=== PATIENT | female | born 1970 | race Caucasian/White ===

== ENCOUNTER 2016-11-12 18:29 | Inpatient (IN) | payer MEDICAID, OTHER ==
[2016-11-12 19:32] LABS: Hematocrit 35 % (35-47); Hemoglobin 11.3 g/dl (12.0-16.0); Mean Corpuscular HGB Conc 32 g/dl (31-36); Mean Corpuscular Hemoglobin 27 pg (27-31); Mean Corpuscular Volume 82 fL (80-97); Mean Platelet Volume 8 um3 (7.4-10.4); Red Blood Count 4.26 10^6/ul (4.0-5.4); Red Cell Distribution Width 16 % (10.5-15); White Blood Count 5.9 10^3/ul (3.5-10.8)
[2016-11-12 19:36] LABS: Urine Bilirubin Negative (Negative); Urine Glucose Negative (Negative); Urine Nitrite Negative (Negative)
[2016-11-12 19:48] LABS: ALT 36 U/L (7-52); AST 31 U/L (13-39); Albumin 3.7 g/dL (3.2-5.2); Alkaline Phosphatase 101 U/L (34-104); Anion Gap 4 mmol/L (2-11); BUN/Creatinine Ratio 15.8 (8-20); Blood Urea Nitrogen 16 mg/dL (6-24); CO2 Carbon Dioxide 31 mmol/L (22-32); Calcium 9.7 mg/dL (8.6-10.3); Chloride 103 mmol/L (101-111); EGFR African American 76.6 (>60); EGFR Non-African American 59.5 (>60); Globulin 3.3 g/dL (2-4); Glucose 84 mg/dL (70-100); Sodium 138 mmol/L (133-145)
[2016-11-12 19:56] LABS: Benzodiazepine Urine Screen None Detected (None Detect)
[2016-11-12 20:02] LABS: Acetaminophen < 15 mcg/mL; Alcohol < 10 mg/dL (<10); Salicylate < 2.50 mg/dL (<30)
[2016-11-12 20:11] LABS: TSH (Thyroid Stimulating Horm) 1.91 mcIU/mL (0.34-5.60)
--- NOTE | 2016-11-12 22:51 | ED ---
Soumya Rodriguez SooYoung, scribed for Tito Goode MD on 11/12/16 at 1912 . Psychiatric Complaint - HPI Summary HPI Summary: A 46 y/o F presents to ED with recent auditory and visual hallucinations. Pt states hearing a little girl crying, as well as a man screaming and hollering. She states being functional, paying bills, acting as caregiver for her step- mom. She notes her father in 04/2016. She was admitted to a psych [facility] for a month when her mother 7 years ago. Pert PMHx: phobia of number, OCD, BPD, schiz. Pt is medication non-compliant. - History Of Current Complaint Chief Complaint: EDMentalHealth Time Seen by Provider: 11/12/16 18:59 Hx Obtained From: Patient Hx Last Menstrual Period: 6 yrs Onset/Duration: Still Present Timing: Constant Associated Signs And Symptoms: Positive: Hallucinating - Allergies/Home Medications Allergies/Adverse Reactions: Allergies Allergy/AdvReac Type Severity Reaction Status Date / Time Morphine Allergy Severe Difficulty Verified 12/15/15 14:48 Breathing Sulfa Antibiotics Allergy Severe diffiuclty Verified 12/15/15 14:48 breathing Bee Venom Allergy Anaphylatic Verified 12/15/15 14:48 Shock Latex Allergy Swelling Verified 12/15/15 14:48 Of Face,Lips,& Throat PMH/Surg Hx/FS Hx/Imm Hx Previously Healthy: No Endocrine/Hematology History: Reports: Hx Thyroid Disease - ON DAILY MEDS Denies: Hx Anticoagulant Therapy, Hx Diabetes - boarderline hx Cardiovascular History: Reports: Hx Hypertension - TREATED Denies: Hx Pacemaker/ICD Respiratory History: Reports: Hx Asthma - ON DAILY MEDS, NOT NEED ED INHALER IN MONTHS, Hx Sleep Apnea - NO CPAP ( STATES DIDN'T USE, GAVE IT BACK) Denies: Hx Lung Cancer GI History: Denies: Hx Gall Bladder Disease, Hx Gastrointestinal Bleed, Hx Ulcer, Hx Urosepsis History: Denies: Hx Kidney Stones, Hx Renal Disease Musculoskeletal History: Reports: Hx Arthritis - OSTEOARTHRITIS, Other Musculoskeletal History - FIBROMYALGIA, DJD Denies: Hx Rheumatoid Arthritis, Hx Osteoporosis Sensory History: Reports: Hx Contacts or Glasses - CONTACTS, WILL WEAR GLASSES DAY OF SURGERY Denies: Hx Hearing Aid Opthamlomology History: Reports: Hx Contacts or Glasses - CONTACTS, WILL WEAR GLASSES DAY OF SURGERY Neurological History: Reports: Hx Seizures - Hx OF EPILEPSY, NO SEIZURES SINCE 2010 Denies: Hx Dementia, Hx Migraine, Hx Transient Ischemic Attacks (TIA) Psychiatric History: Reports: Hx Anxiety - ON MEDS DAILY, Hx Depression, Hx Schizophrenia, Other Psychiatric Issues/Disorders - borderline personality disorder; OCD Denies: Hx Panic Disorder, Hx Bipolar Disorder - Cancer History Cancer Type, Location and Year: OVARIAN/UTERINE Hx Chemotherapy: No Hx Radiation Therapy: No - Surgical History Surgery Procedure, Year, and Place: 1990 & [place] [place]. 2000 hysterectomy [facility]. 2010 MENISCUS REPAIRED AND ARTHRITIS REMOVED FROM LT K[facility] [place]. july 2015. 2011 GALL BLADDER REMOVED [facility]. KNEE SURGERY-LEFT 07/16/15 Hx Anesthesia Reactions: No Infectious Disease History: No Infectious Disease History: Denies: Traveled Outside the [place] in Last 30 Days - Family History Known Family History: Positive: Cardiac Disease, Hypertension, Diabetes - Social History Occupation: Disabled Lives: Alone Alcohol Use: None Hx Substance Use: No Substance Use Type: Reports: None Hx Tobacco Use: No Smoking Status (MU): Never Smoked Tobacco Have You Smoked in the Last Year: No Review of Systems Negative: Fever Negative: Cough Psychological: Other - pos: auditory and visual hallucinations All Other Systems Reviewed And Are Negative: Yes Physical Exam Triage Information Reviewed: Yes Vital Signs On Initial Exam: Initial Vitals Temp Pulse Resp BP Pulse Ox 97.2 F 79 18 143/65 100 11/12/16 18:41 11/12/16 18:41 11/12/16 18:41 11/12/16 18:41 11/12/16 18:41 Vital Signs Reviewed: Yes Appearance: Positive: Well-Appearing, No Pain Distress, Obese Skin: Positive: Warm, Skin Color Reflects Adequate Perfusion, Dry Head/Face: Positive: Normal Head/Face Inspection Eyes: Positive: Normal ENT: Positive: Normal ENT inspection Neck: Positive: Supple, Nontender Respiratory/Lung Sounds: Positive: Clear to Auscultation, Breath Sounds Present Cardiovascular: Positive: RRR Abdomen Description: Positive: Nontender, Soft Bowel Sounds: Positive: Present Musculoskeletal: Positive: Normal Neurological: Positive: Normal Psychiatric: Positive: Normal, Affect/Mood Appropriate Diagnostics - Vital Signs Vital Signs Temp Pulse Resp BP Pulse Ox 11/12/16 18:41 97.2 F 79 18 143/65 100 - Laboratory Lab Results: Lab Results 11/12/16 11/12/16 11/12/16 Range/Units 19:19 19:19 19:19 WBC 5.9 (3.5-10.8) 10^3/ul RBC 4.26 (4.0-5.4) 10^6/ul Hgb 11.3 L (12.0-16.0) g/dl Hct 35 (35-47) % MCV 82 (80-97) fL MCH 27 (27-31) pg MCHC 32 (31-36) g/dl RDW 16 H (10.5-15) % Plt Count 258 (150-450) 10^3/ul MPV 8 (7.4-10.4) um3 Neut % (Auto) 47.1 (38-83) % Lymph % (Auto) 42.6 (25-47) % [place] % (Auto) 8.3 (1-9) % Eos % (Auto) 1.2 (0-6) % Baso % (Auto) 0.8 (0-2) % Absolute Neuts (auto) 2.8 (1.5-7.7) 10^3/ul Absolute Lymphs (auto) 2.5 (1.0-4.8) 10^3/ul Absolute Monos (auto) 0.5 (0-0.8) 10^3/ul Absolute Eos (auto) 0.1 (0-0.6) 10^3/ul Absolute Basos (auto) 0 (0-0.2) 10^3/ul Absolute Nucleated RBC 0.01 10^3/ul Nucleated RBC % 0.1 Sodium 138 (133-145) mmol/L Potassium 4.0 (3.5-5.0) mmol/L Chloride 103 (101-111) mmol/L Carbon Dioxide 31 (22-32) mmol/L Anion Gap 4 (2-11) mmol/L BUN 16 (6-24) mg/dL Creatinine 1.01 H (0.51-0.95) mg/dL Est GFR ( Amer) 76.6 (>60) Est GFR (Non-Af Amer) 59.5 (>60) BUN/Creatinine Ratio 15.8 (8-20) Glucose 84 (70-100) mg/dL Calcium 9.7 (8.6-10.3) mg/dL Total Bilirubin 0.30 (0.2-1.0) mg/dL AST 31 (13-39) U/L ALT 36 (7-52) U/L Alkaline Phosphatase 101 (34-104) U/L Total Protein 7.0 (6.4-8.9) g/dL Albumin 3.7 (3.2-5.2) g/dL Globulin 3.3 (2-4) g/dL Albumin/Globulin Ratio 1.1 (1-3) TSH 1.91 (0.34-5.60) mcIU/mL Urine Color Yellow Urine Appearance Clear Urine pH 5.0 (5-9) Ur Specific [place] 1.020 (1.010-1.030) Urine Protein Negative (Negative) Urine Ketones Negative (Negative) Urine Blood Negative (Negative) Urine Nitrate Negative (Negative) Urine Bilirubin Negative (Negative) Urine Urobilinogen Negative (Negative) Ur Leukocyte Esterase Negative (Negative) Urine Glucose Negative (Negative) Urine Ascorbic Acid * H (Negative) Salicylates < 2.50 (<30) mg/dL Urine Opiates Screen (None Detect) Acetaminophen < 15 mcg/mL Ur Barbiturates Screen (None Detect) Ur Phencyclidine Scrn (None Detect) Ur Amphetamines Screen (None Detect) U Benzodiazepines Scrn (None Detect) Urine Cocaine Screen (None Detect) U Cannabinoids Screen (None Detect) Serum Alcohol < 10 (<10) mg/dL 11/12/16 Range/Units 19:19 WBC (3.5-10.8) 10^3/ul RBC (4.0-5.4) 10^6/ul Hgb (12.0-16.0) g/dl Hct (35-47) % MCV (80-97) fL MCH (27-31) pg MCHC (31-36) g/dl RDW (10.5-15) % Plt Count (150-450) 10^3/ul MPV (7.4-10.4) um3 Neut % (Auto) (38-83) % Lymph % (Auto) (25-47) % [place] % (Auto) (1-9) % Eos % (Auto) (0-6) % Baso % (Auto) (0-2) % Absolute Neuts (auto) (1.5-7.7) 10^3/ul Absolute Lymphs (auto) (1.0-4.8) 10^3/ul Absolute Monos (auto) (0-0.8) 10^3/ul Absolute Eos (auto) (0-0.6) 10^3/ul Absolute Basos (auto) (0-0.2) 10^3/ul Absolute Nucleated RBC 10^3/ul Nucleated RBC % Sodium (133-145) mmol/L Potassium (3.5-5.0) mmol/L Chloride (101-111) mmol/L Carbon Dioxide (22-32) mmol/L Anion Gap (2-11) mmol/L BUN (6-24) mg/dL Creatinine (0.51-0.95) mg/dL Est GFR ( Amer) (>60) Est GFR (Non-Af Amer) (>60) BUN/Creatinine Ratio (8-20) Glucose (70-100) mg/dL Calcium (8.6-10.3) mg/dL Total Bilirubin (0.2-1.0) mg/dL AST (13-39) U/L ALT (7-52) U/L Alkaline Phosphatase (34-104) U/L Total Protein (6.4-8.9) g/dL Albumin (3.2-5.2) g/dL Globulin (2-4) g/dL Albumin/Globulin Ratio (1-3) TSH (0.34-5.60) mcIU/mL Urine Color Urine Appearance Urine pH (5-9) Ur Specific [place] (1.010-1.030) Urine Protein (Negative) Urine Ketones (Negative) Urine Blood (Negative) Urine Nitrate (Negative) Urine Bilirubin (Negative) Urine Urobilinogen (Negative) Ur Leukocyte Esterase (Negative) Urine Glucose (Negative) Urine Ascorbic Acid (Negative) Salicylates (<30) mg/dL Urine Opiates Screen None detected (None Detect) Acetaminophen mcg/mL Ur Barbiturates Screen None detected (None Detect) Ur Phencyclidine Scrn None detected (None Detect) Ur Amphetamines Screen None detected (None Detect) U Benzodiazepines Scrn None detected (None Detect) Urine Cocaine Screen None detected (None Detect) U Cannabinoids Screen None detected (None Detect) Serum Alcohol (<10) mg/dL Result Diagrams: 11/12/16 19:19 11/12/16 19:19 Lab Statement: Any lab studies that have been ordered have been reviewed, and results considered in the medical decision making process. Course/Dx - Course Course Of Treatment: Pt is medically clear for MHE at 2014. - Differential Dx/Clinical Impression Provider Diagnosis: Psychosis Discharge - Discharge Plan Condition: Stable Disposition: OTHER Discharge Disposition Comment: Change of Shift The documentation as recorded by the Soumya mckinney SooYoung accurately reflects the service I personally performed and the decisions made by me, Tito Goode MD.
[2016-11-13] MEDS ORDERED: Docusate CAP* 100 MG ONE (00:53)
[2016-11-13] MEDS ORDERED: Cholecalciferol TAB* 1000 UNITS ONE (00:53)
[2016-11-13] MEDS ORDERED: traZODone TAB* 100 MG ONE (00:53)
[2016-11-13] MEDS ORDERED: Magnesium Oxide TAB* 400 MG ONE (00:54)
[2016-11-13] MEDS ORDERED: Metoprolol Tartrate TAB* 50 mg ONE (00:54)
[2016-11-13] MEDS ORDERED: Pregabalin CAP(*) 100 MG ONE (00:55)
[2016-11-13] MEDS ORDERED: hydrOXYzine HCL TAB* 50 MG ONE (00:55)
[2016-11-13] MEDS: hydrOXYzine HCL TAB* 50 MG PO SCH ×3 (01:06→21:54)
[2016-11-13] MEDS: Cholecalciferol TAB* 1000 UNITS PO SCH ×3 (01:06→21:53)
[2016-11-13] MEDS: Metoprolol Tartrate TAB* 50 mg PO SCH ×3 (01:06→21:54)
[2016-11-13] MEDS: Magnesium Oxide TAB* 400 MG PO SCH ×3 (01:06→21:54)
[2016-11-13] MEDS: Pregabalin CAP(*) 100 MG PO SCH ×3 (01:07→21:59)
[2016-11-13] MEDS: Nabumetone TAB* 500 MG PO SCH ×3 (01:07→21:54)
[2016-11-13] MEDS: tiZANidine TAB* 2 MG PO SCH ×2 (01:08→21:56)
[2016-11-13] MEDS: traZODone TAB* 100 MG PO SCH ×2 (01:08→21:57)
[2016-11-13] MEDS ORDERED: Al Hydrox/Mg Hydrox/Simet LIQ* 30 ML UDC PO PRN (06:07)
[2016-11-13] MEDS ORDERED: Acetaminophen TAB* 325 MG PO PRN (06:07)
[2016-11-13] MEDS ORDERED: Levothyroxine TAB* 25 MCG TAB ONE (06:30)
[2016-11-13] MEDS: Levothyroxine TAB* 50 MCG TAB PO SCH (06:34)
[2016-11-13] MEDS: Omeprazole CAP* 20 MG PO SCH (09:16)
[2016-11-13] MEDS: Cetirizine* 10 MG TAB PO SCH (09:16)
[2016-11-13] MEDS: Docusate CAP* 100 MG PO SCH ×2 (09:17→21:53)
[2016-11-13] MEDS: Calcium/Vitamin D TAB 250/125* TAB PO SCH (09:19)
[2016-11-13] MEDS: Atorvastatin* 40 MG TAB PO SCH (09:19)
[2016-11-13] MEDS: Fluticasone NASAL SPRAY 50MCG* 16 gm SPRAY BTL BOTH NARES SCH ×2 (09:21→21:53)
[2016-11-13] MEDS: Vitamin THERAPEUTIC TAB PO SCH (09:40)
--- NOTE | 2016-11-13 11:04 | PN ---
MHU: Group Therapy Note - Service Type Service Type: [id number] Group Psychotherapy - cognitive behavioral psychotherapy note: Patient was disrespectful to staff and disrupted group while exiting early.
[2016-11-13] MEDS: Paliperidone TAB* 6 MG PO SCH (15:31)
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
[2016-11-14] MEDS: Levothyroxine TAB* 50 MCG TAB PO SCH (06:18)
[2016-11-14 08:59] LABS: HDL Cholesterol 48.7 mg/dL; Magnesium 2.2 mg/dL (1.9-2.7)
[2016-11-14] MEDS: Paliperidone TAB* 6 MG PO SCH (09:00)
[2016-11-14] MEDS: Fluticasone NASAL SPRAY 50MCG* 16 gm SPRAY BTL BOTH NARES SCH ×2 (09:00→21:40)
[2016-11-14] MEDS: Pregabalin CAP(*) 100 MG PO SCH ×2 (09:02→21:42)
[2016-11-14] MEDS: Docusate CAP* 100 MG PO SCH ×2 (09:02→21:48)
[2016-11-14] MEDS: Cetirizine* 10 MG TAB PO SCH (09:03)
[2016-11-14] MEDS: Atorvastatin* 40 MG TAB PO SCH (09:03)
[2016-11-14] MEDS: Cholecalciferol TAB* 1000 UNITS PO SCH ×2 (09:03→21:41)
[2016-11-14] MEDS: Calcium/Vitamin D TAB 250/125* TAB PO SCH (09:04)
[2016-11-14] MEDS: Magnesium Oxide TAB* 400 MG PO SCH ×2 (09:05→21:41)
[2016-11-14] MEDS: hydrOXYzine HCL TAB* 50 MG PO SCH ×2 (09:05→21:41)
[2016-11-14] MEDS: Metoprolol Tartrate TAB* 50 mg PO SCH ×2 (09:06→21:43)
[2016-11-14] MEDS: Nabumetone TAB* 500 MG PO SCH ×2 (09:06→21:43)
[2016-11-14] MEDS: Vitamin THERAPEUTIC TAB PO SCH (09:07)
[2016-11-14] MEDS: Omeprazole CAP* 20 MG PO SCH (09:08)
--- NOTE | 2016-11-14 11:35 | PN ---
MHU: Group Therapy Note - Service Type Service Type: [id number] Group Psychotherapy - Cognitive Behavioral Group Therapy ( CBT):Patient was attentive and participatory in CBT programming this morning, and remained in good behavioral control. Patient expressed positive insights regarding relevant treatment interventions and goals.
[2016-11-14] MEDS ORDERED: LORazepam TAB(*) 1 MG PO PRN (13:15)
--- NOTE | 2016-11-14 14:24 | PN ---
Subjective - Subjective Service Type: [id number] Hosp care 15 min low complexity Subjective: Yasmin continues to complain of anxiety, AH and VH. She reports that last night she wrote racist comments in her journal, something she sees as anathematic to her values. "That's not me at all, but that's how crazy I've become." She continues to endorse SI related to command AH. She is tolerating the paliperidone well so far and requests a higher dose. She is upset that she cannot have a close friend visit her on the unit due to the departmental policy that recently admitted patients, such as her friend, may not be visitors until 6 months after their own discharge. She c/o new onset abdominal pain with no nausea, bloody stools or emesis. Objective - Appearance Appearance: Obese Dysmorphic Features: No Hygiene: Normal Grooming: Well Kept - Behavior Psychomotor Activities: Normal Exhibits Abnormal Movement: No - Attitude and Relatedness Attitude and Relatedness: Needy Eye Contact: Good - Speech Quality: Pressured Latencies: Short Quantity: Copious - Mood Patient's Decription of Mood: "Terrible" - Affect Observed Affect: Labile Affect Consistent with: Dysphoria - Thought Process Patient's Thought Process: Tangential Thought Content: Yes Passive Wish, No Suicidal Planning, No Homicidal Ideation, No Paranoid Ideation - Sensorium Experiencing Hallucinations: Yes Type of Hallucinations: Visual: Yes, Auditory: Yes, Command: Yes - Level of Consciousness Level of Consciousness: Alert Orientation: Yes Intact, Yes Orientated to Time, Yes Orientated to Place, Yes Orientated to Person - Impulse Control Impulse Control: Tenuous - Insight and Judgement Insight and Judgement: Fair - Group Participation Particating in Group Activities: Yes - Medication Management Medication Management Adherence: Yes Assessment - Assessment Merits Inpatient Hospitalization: For Immediate Safety, For Stabilization Inpatient DSM-IV Dx: Unspecified Psychotic DO Clinical Impression: 46 y.o. white female with a history of schizophrenia, PTSD, OCD and borderline PD arrives voluntarily seeking admission secondary to several days of severe AH commanding her to harm herself via OD, jumping off a bridge or running her car off the road. Plan - Plan Treatment Plan: Name: YASMIN HALL Birthdate: 1970 [id number] We have started a trial of paliperidone at 6mg PO qday and will increase this to 9mg PO qday. Will utilize prn lorazepam 1mg for anxiety. Mylanta 15cc PO q6h prn for indigestion/abdominal pain. Will consider Invega Sustenna long acting injectable formulation if patient can follow up with an outpatient provider that accommodates this option. Continued Medication Management: Start Medication Medications: Current Medications Acetaminophen (Tylenol Tab*) 650 mg PO Q4H PRN PRN Reason: PAIN or TEMP > 101 F Last Admin: 11/13/16 20:24 Dose: 650 mg Al Hydrox/Mg Hydrox/Simethicone (Maalox Plus*) 30 ml PO Q4H PRN PRN Reason: INDIGESTION Atorvastatin Calcium (Lipitor*) 40 mg PO DAILY [facility] Last Admin: 11/14/16 09:03 Dose: 40 mg Calcium/Vitamin D (Oscal D Tab 250/125*) 1 tab PO DAILY [facility] Last Admin: 11/14/16 09:04 Dose: 1 tab Cetirizine HCl (Zyrtec*) 10 mg PO DAILY [facility] Last Admin: 11/14/16 09:03 Dose: 10 mg Cholecalciferol (Vitamin D Tab*) 2,000 units PO BID [facility] Docusate Sodium (Colace Cap*) 100 mg PO BID [facility] Last Admin: 11/14/16 09:02 Dose: 100 mg Fluticasone Propionate (Flonase Nasal [place] 50mcg*) 1 spray BOTH NARES BID [facility] Last Admin: 11/14/16 09:00 Dose: 1 spray Hydroxyzine HCl (Atarax Tab*) 50 mg PO DAILY [facility] Last Admin: 11/14/16 09:05 Dose: 50 mg Hydroxyzine HCl (Atarax Tab*) 100 mg PO BEDTIME [facility] Last Admin: 11/13/16 21:54 Dose: 100 mg Levothyroxine Sodium (Synthroid Tab*) 50 mcg PO DAILY@0600 [facility] Last Admin: 11/14/16 06:18 Dose: 50 mcg Lorazepam (Ativan Tab(*)) 1 mg PO Q6H PRN PRN Reason: ANXIETY Magnesium Oxide (Magox 400 Tab*) 400 mg PO DAILY [facility] Last Admin: 11/14/16 09:05 Dose: 400 mg Magnesium Oxide (Magox 400 Tab*) 800 mg PO BEDTIME [facility] Last Admin: 11/13/16 21:54 Dose: 800 mg Metoprolol Tartrate (Lopressor Tab*) 50 mg PO BID [facility] Last Admin: 11/14/16 09:06 Dose: 50 mg Multivitamins (Theragran Tab*) 1 tab PO DAILY [facility] Last Admin: 11/14/16 09:07 Dose: 1 tab Nabumetone (Relafen Tab*) 750 mg PO BID [facility] Last Admin: 11/14/16 09:06 Dose: 750 mg Omeprazole (Prilosec Cap*) 20 mg PO DAILY@0730 [facility] Last Admin: 11/14/16 09:08 Dose: 20 mg Paliperidone (Invega Tab*) 9 mg PO DAILY [facility] Pregabalin (Lyrica Cap(*)) 200 mg PO BID [facility] Last Admin: 11/14/16 09:02 Dose: 200 mg Tizanidine HCl (Zanaflex Tab*) 12 mg PO BEDTIME [facility] Last Admin: 11/13/16 21:56 Dose: 12 mg Trazodone HCl (Desyrel Tab*) 100 mg PO BEDTIME [facility] Last Admin: 11/13/16 21:57 Dose: 100 mg - Discharge Plan Discharge Plan: Inpatient Hospitalization
[2016-11-14] MEDS: traZODone TAB* 100 MG PO SCH (21:43)
[2016-11-14] MEDS: tiZANidine TAB* 2 MG PO SCH (21:44)
[2016-11-15] MEDS: Levothyroxine TAB* 50 MCG TAB PO SCH (06:05)
[2016-11-15] MEDS: Fluticasone NASAL SPRAY 50MCG* 16 gm SPRAY BTL BOTH NARES SCH ×2 (09:19→21:33)
[2016-11-15] MEDS: Nabumetone TAB* 500 MG PO SCH ×2 (09:20→21:33)
[2016-11-15] MEDS: Vitamin THERAPEUTIC TAB PO SCH (09:20)
[2016-11-15] MEDS: Pregabalin CAP(*) 100 MG PO SCH ×2 (09:21→21:34)
[2016-11-15] MEDS: Paliperidone TAB* 9 MG PO SCH (09:22)
[2016-11-15] MEDS: Metoprolol Tartrate TAB* 50 mg PO SCH ×2 (09:22→21:35)
[2016-11-15] MEDS: Docusate CAP* 100 MG PO SCH ×2 (09:22→21:34)
[2016-11-15] MEDS: hydrOXYzine HCL TAB* 50 MG PO SCH ×2 (09:22→21:35)
[2016-11-15] MEDS: Magnesium Oxide TAB* 400 MG PO SCH ×2 (09:22→21:35)
[2016-11-15] MEDS: Omeprazole CAP* 20 MG PO SCH (09:23)
[2016-11-15] MEDS: Atorvastatin* 40 MG TAB PO SCH (09:23)
[2016-11-15] MEDS: Cholecalciferol TAB* 1000 UNITS PO SCH ×2 (09:23→21:32)
[2016-11-15] MEDS: Calcium/Vitamin D TAB 250/125* TAB PO SCH (09:23)
[2016-11-15] MEDS: Cetirizine* 10 MG TAB PO SCH (09:24)
[2016-11-15] MEDS: tiZANidine TAB* 2 MG PO SCH (21:31)
[2016-11-15] MEDS: traZODone TAB* 100 MG PO SCH (21:35)
[2016-11-16] MEDS: Levothyroxine TAB* 50 MCG TAB PO SCH (06:00)
[2016-11-16] MEDS: Fluticasone NASAL SPRAY 50MCG* 16 gm SPRAY BTL BOTH NARES SCH ×2 (09:36→21:01)
[2016-11-16] MEDS: Nabumetone TAB* 500 MG PO SCH ×2 (09:37→21:02)
[2016-11-16] MEDS: Magnesium Oxide TAB* 400 MG PO SCH ×2 (09:40→21:02)
[2016-11-16] MEDS: Omeprazole CAP* 20 MG PO SCH (09:41)
[2016-11-16] MEDS: Paliperidone TAB* 9 MG PO SCH (09:41)
[2016-11-16] MEDS: Metoprolol Tartrate TAB* 50 mg PO SCH ×2 (09:41→21:02)
[2016-11-16] MEDS: Atorvastatin* 40 MG TAB PO SCH (09:42)
[2016-11-16] MEDS: Cholecalciferol TAB* 1000 UNITS PO SCH ×2 (09:43→21:01)
[2016-11-16] MEDS: Calcium/Vitamin D TAB 250/125* TAB PO SCH (09:45)
[2016-11-16] MEDS: Docusate CAP* 100 MG PO SCH ×2 (09:46→21:01)
[2016-11-16] MEDS: hydrOXYzine HCL TAB* 50 MG PO SCH ×2 (09:47→21:02)
[2016-11-16] MEDS: Cetirizine* 10 MG TAB PO SCH (09:47)
[2016-11-16] MEDS: Vitamin THERAPEUTIC TAB PO SCH (09:48)
[2016-11-16] MEDS: Pregabalin CAP(*) 100 MG PO SCH ×2 (09:50→21:03)
--- NOTE | 2016-11-16 16:53 | PN ---
Subjective - Subjective Service Type: [id number] Hosp care 15 min low complexity Subjective: Yasmin reports that she hasn't heard voices since yesterday and denies SI/HI. Taking meds as prescribed and says meds are helping. Objective - Appearance Appearance: Healthy Appearing Dysmorphic Features: No Hygiene: Normal Grooming: Fairly Well Kept - Behavior Psychomotor Activities: Normal Exhibits Abnormal Movement: No - Attitude and Relatedness Attitude and Relatedness: Appropriate Eye Contact: Good - Speech Quality: Unpressured Latencies: Normal Quantity: Appropriate - Mood Patient's Decription of Mood: "Fine" - Affect Observed Affect: Non-labile Affect Consistent with: Dysphoria - Thought Process Patient's Thought Process: Coherent, Goal Directed Thought Content: No Passive Wish, No Suicidal Planning, No Homicidal Ideation, No Paranoid Ideation - Sensorium Experiencing Hallucinations: No, Sensorium is Clear Type of Hallucinations: Visual: No, Auditory: No, Command: No - Level of Consciousness Level of Consciousness: Alert Orientation: Yes Intact, Yes Orientated to Time, Yes Orientated to Place, Yes Orientated to Person - Impulse Control Impulse Control: Intact - Insight and Judgement Insight and Judgement: Fair - Group Participation Particating in Group Activities: Yes - Medication Management Medication Management Adherence: Yes Assessment - Assessment Merits Inpatient Hospitalization: Consolidate Improvements, Pending Safe DC Plan Inpatient DSM-IV Dx: Unspecified Psychotic DO Clinical Impression: Improving on current treatments. Plan - Plan Treatment Plan: Name: YASMIN HALL Birthdate: 1970 [id number] Continued Medication Management: Continue Outpt Medication Medications: Current Medications Acetaminophen (Tylenol Tab*) 650 mg PO Q4H PRN PRN Reason: PAIN or TEMP > 101 F Last Admin: 11/13/16 20:24 Dose: 650 mg Al Hydrox/Mg Hydrox/Simethicone (Maalox Plus*) 30 ml PO Q4H PRN PRN Reason: INDIGESTION Atorvastatin Calcium (Lipitor*) 40 mg PO DAILY [facility] Last Admin: 11/16/16 09:42 Dose: 40 mg Calcium/Vitamin D (Oscal D Tab 250/125*) 1 tab PO DAILY [facility] Last Admin: 11/16/16 09:45 Dose: 1 tab Cetirizine HCl (Zyrtec*) 10 mg PO DAILY [facility] Last Admin: 11/16/16 09:47 Dose: 10 mg Cholecalciferol (Vitamin D Tab*) 2,000 units PO BID [facility] Last Admin: 11/16/16 09:43 Dose: 2,000 units Docusate Sodium (Colace Cap*) 100 mg PO BID [facility] Last Admin: 11/16/16 09:46 Dose: 100 mg Fluticasone Propionate (Flonase Nasal [place] 50mcg*) 1 spray BOTH NARES BID [facility] Last Admin: 11/16/16 09:36 Dose: 1 spray Hydroxyzine HCl (Atarax Tab*) 50 mg PO DAILY [facility] Last Admin: 11/16/16 09:47 Dose: 50 mg Hydroxyzine HCl (Atarax Tab*) 100 mg PO BEDTIME [facility] Last Admin: 11/15/16 21:35 Dose: 100 mg Levothyroxine Sodium (Synthroid Tab*) 50 mcg PO DAILY@0600 [facility] Last Admin: 11/16/16 06:00 Dose: 50 mcg Lorazepam (Ativan Tab(*)) 1 mg PO Q6H PRN PRN Reason: ANXIETY Last Admin: 11/16/16 13:22 Dose: 1 mg Magnesium Oxide (Magox 400 Tab*) 400 mg PO DAILY [facility] Last Admin: 11/16/16 09:40 Dose: 400 mg Magnesium Oxide (Magox 400 Tab*) 800 mg PO BEDTIME [facility] Last Admin: 11/15/16 21:35 Dose: 800 mg Metoprolol Tartrate (Lopressor Tab*) 50 mg PO BID [facility] Last Admin: 11/16/16 09:41 Dose: 50 mg Multivitamins (Theragran Tab*) 1 tab PO DAILY [facility] Last Admin: 11/16/16 09:48 Dose: 1 tab Nabumetone (Relafen Tab*) 750 mg PO BID [facility] Last Admin: 11/16/16 09:37 Dose: 750 mg Omeprazole (Prilosec Cap*) 20 mg PO DAILY@0730 [facility] Last Admin: 11/16/16 09:41 Dose: 20 mg Paliperidone (Invega Tab*) 9 mg PO DAILY [facility] Last Admin: 11/16/16 09:41 Dose: 9 mg Pregabalin (Lyrica Cap(*)) 200 mg PO BID [facility] Last Admin: 11/16/16 09:50 Dose: 200 mg Tizanidine HCl (Zanaflex Tab*) 12 mg PO BEDTIME [facility] Last Admin: 11/15/16 21:31 Dose: 12 mg Trazodone HCl (Desyrel Tab*) 100 mg PO BEDTIME [facility] Last Admin: 11/15/16 21:35 Dose: 100 mg - Discharge Plan Discharge Plan: Outpatient Follow Up Outpatient Program: [facility]
[2016-11-16] MEDS: traZODone TAB* 100 MG PO SCH (21:03)
[2016-11-16] MEDS: tiZANidine TAB* 2 MG PO SCH (21:03)
[2016-11-17] MEDS: Levothyroxine TAB* 50 MCG TAB PO SCH (06:00)
[2016-11-17 08:04] VITALS: BP 119/58
[2016-11-17] MEDS: Cholecalciferol TAB* 1000 UNITS PO SCH (08:32)
[2016-11-17] MEDS: Fluticasone NASAL SPRAY 50MCG* 16 gm SPRAY BTL BOTH NARES SCH (08:32)
[2016-11-17] MEDS: Nabumetone TAB* 500 MG PO SCH (08:33)
[2016-11-17] MEDS: Pregabalin CAP(*) 100 MG PO SCH (08:33)
[2016-11-17] MEDS: Vitamin THERAPEUTIC TAB PO SCH (08:34)
[2016-11-17] MEDS: Cetirizine* 10 MG TAB PO SCH (08:34)
[2016-11-17] MEDS: Metoprolol Tartrate TAB* 50 mg PO SCH (08:34)
[2016-11-17] MEDS: Paliperidone TAB* 9 MG PO SCH (08:34)
[2016-11-17] MEDS: Calcium/Vitamin D TAB 250/125* TAB PO SCH (08:35)
[2016-11-17] MEDS: Atorvastatin* 40 MG TAB PO SCH (08:35)
[2016-11-17] MEDS: Omeprazole CAP* 20 MG PO SCH (08:35)
[2016-11-17] MEDS: hydrOXYzine HCL TAB* 50 MG PO SCH (08:35)
[2016-11-17] MEDS: Magnesium Oxide TAB* 400 MG PO SCH (08:35)
[2016-11-17] MEDS: Docusate CAP* 100 MG PO SCH (08:35)
--- NOTE | 2016-11-17 11:28 | PN ---
MHU: Group Therapy Note - Service Type Service Type: [id number] Group Psychotherapy - Cognitive Behavioral Group Therapy ( CBT):Patient was attentive and participatory in CBT programming this morning, and remained in good behavioral control. Patient expressed positive insights regarding relevant treatment interventions and goals.
[2016-11-17] MEDS ORDERED: Paliperidone SUSTENNA* 234 MG/1.5 ML IM ONE (11:59)
--- NOTE | 2016-11-17 16:53 | DS ---
DATE OF ADMISSION: 11/12/2016. DATE OF DISCHARGE: 11/17/2016. DISCHARGE DIAGNOSES: AXIS I: Unspecified psychotic disorder, schizophrenia by history, obsessive compulsive disorder by history, posttraumatic stress disorder by history. AXIS II: Borderline personality disorder; histrionic personality traits. AXIS III: Fibromyalgia, Lupus, degenerative disk disease, osteoarthritis, epilepsy, hyperlipidemia, gastroesophageal reflux disease, hypothyroidism, vitamin D deficiency, hypomagnesemia, history of hysterectomy, history of C- section times two, cholecystectomy, and earlobe repair. AXIS IV: Moderate, primary support stressors. AXIS V: At the time of admission was 35 and at the time of discharge is 60. CONDITION AT THE TIME OF DISCHARGE: Stable. The patient is denying suicidal ideations and has done so for several days. In fact, she has been safe on all checks, calm and cooperative on the unit, socializing with peers as well as with visitors from home. The patient is telling me that she would better suited receiving further care in the outpatient setting because she would like to get home to her cat and to see her friends back in [place]. The stressor leading to this hospitalization was command auditory hallucinations, which have now resolved completely with the use of Invega Sustenna. The patient has now been changed to the intramuscular long-acting formulation of this medication, which she is tolerating well. MENTAL STATUS EXAMINATION AT THE TIME OF DISCHARGE: The patient is an extremely overweight white female with short brownish hair and a light green shirt. She is dressed in clean casual clothing, has good posture and makes good eye contact. She is cooperative with a speech that has a normal rate, tone , and volume. Mood is euthymic with a full affect. Thought process is linear and goal-directed. Thought content is significant for her desire to leave the hospital. She denies suicidal or homicidal ideations. She denies auditory or visual hallucinations. Insight and judgment are fair given her willingness to follow-up with outpatient treatment in the community. Cognitively, she is awake and alert with what would appear to be an average intellect. DISCHARGE INSTRUCTIONS TO THE PATIENT: A. Medications: She is to take Zanaflex 8 mg p.o. at bedtime, Trazodone 200 mg p.o. at bedtime, Tobramycin 0.3% ophthalmic solution one drop to her left eye every 4 hours, [place] Thyroid 0.15 mcg p.o. q.a.m., Lyrica 200 mg p.o. b.i.d., Pantoprazole 40 mg p.o. q.a.m., Meclizine 25 mg p.o. q.i.d., Claritin 10 mg p.o. at bedtime, Plaquenil 200 mg p.o. b.i.d., HCTZ 25 mg p.o. q.a.m., Flonase 50 mcg one spray per naris b.i.d., Doc-Q-Lace 100 mg p.o. b.i.d., Voltaren 1% gel applied topically as needed t.i.d., Restasis 0.5% ophthalmic solution one drop to both eyes b.i.d., Hydroxyzine 100 mg p.o. at bedtime, Hydroxyzine 50 mg p.o. q.a.m., Invega Sustenna 156 mg IM every 4 weeks, her next injection will be due in one week, which is November 24. B. Diet: Regular. C. Activities: As tolerated. The patient is a nonsmoker. There are no laboratory or diagnostic studies pending at the time of discharge. D. Follow-up care: The patient will follow-up on November 24 at the [facility] where she will be receiving a booster dose of her Invega Sustenna 156 mg antipsychotic medication. All other follow-ups will be through [facility] as well. HOSPITAL COURSE - PART A: Reason for admission: The patient is a 46-year-old, , obese, white female with a history of multiple past psychiatric diagnoses, including schizophrenia, borderline personality disorder, OCD, PTSD, and depression, who also has comorbid autoimmune illnesses such as Lupus and fibromyalgia who self-referred to the emergency room on a voluntary basis seeking admission for suicidal ideations related to the recent onset of auditory hallucinations telling her to kill herself. As I met with the patient, she was irritable and angry with me for asking her to accompany me from the group treatment setting. Upon examination, she complained of being "angry, bitter, distressed, overwhelmed, hopeless, and betrayed." The patient states that she had gone approximately five years without any psychiatric treatment of any kind, but states that over this past weekend she had a rapid onset of auditory hallucinations and states that she has been crying for days on end. In terms of her auditory hallucinations, she states that they are largely derogatory in nature, calling her "whore, slut" and stating "nobody is going to care if you , there is a bridge that you can jump off of." She also sees visual hallucinations of a small female child as well as her parents. The patient is uncertain of any triggering stressors from her recent past, although she does acknowledge that back in April 2016 her father had . 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 She also complains of an exacerbation of her OCD symptoms, stating that she sees germs and untidy things in the carpet. Her suicidal ideations include thoughts of either overdosing, jumping off a bridge, or running her car into a tree. She denies homicidal ideations at this time. I did question her about the so called neurovegetative symptoms of depression and she did endorse hypersomnolence, anhedonia, guilt, decreased energy, and decreased appetite; however, she denied alterations in concentration or psychomotor phenomena. HOSPITAL COURSE - PART B: Psychiatric treatment rendered: The patient was admitted to the Adult Behavioral Health Unit where she was placed on q.15 minute checks for her own safety. She indicated that she had had a successful trial of Invega Sustenna in the remote past and was interested in resuming this. Initially, she was resistant towards getting follow-up appointments with either [facility] or with [facility]; however, it was clarified that she would not be able to receive another provider in the community who could facilitate her being on the injectable antipsychotic and so she acquiesced and agreed to a follow-up appointment with [facility]. Prior to giving her loading injection of Invega with occurred on the day of discharge, we did start a trial of oral Invega, initially at 6 mg p.o. daily, but then increased to 9 mg p.o. daily. Almost immediately the patient experienced a reduction in her irritability over several days. Her auditory hallucinations quieted and they stopped being of a derogatory nature, ultimately resolving completely. She similarly stopped having visual hallucinations. She was calm and cooperative and was an eager participant in group programming. She seemed to get along well with peers and she had several visits from outside friends and family, although she did not want any of them necessarily involved directed with her treatment. At any rate, the patient's suicidal thoughts completely resolved and she indicated on the day of discharge that she would like go home so that she can continue treatment in the outpatient setting. We have seen no evidence of thoughts of self-harm or harm to others. There is no indication that she is still responding to internal stimuli. She tolerated the loading dose of Invega Sustenna quite well and she will be due for a booster dose of this in one week. Appropriate follow-up appointments have been made with [facility]. At this time, we feel that she is safe to be discharged from the hospital and there are no barriers that we know of to receiving definitive care in the community. [id number]/[facility] #: [id number] DHEERAJ
== END 2016-11-17 17:00 | disposition home or self-care (01) | DRG 751 ==
LOC: ED 18:29 → BSU 22:44
PROVIDERS: ADMIT Psychiatry & Neurology Psychiatry; ATTEND Psychiatry & Neurology Psychiatry
DX: F29 Unspecified psychosis not due to a substance or known physiological condition (principal); M32.9 Systemic lupus erythematosus, unspecified; Z68.43 Body mass index [BMI] 50.0-59.9, adult; E83.42 Hypomagnesemia; E66.01 Morbid (severe) obesity due to excess calories; R45.851 Suicidal ideations; F20.9 Schizophrenia, unspecified; F42.9 Obsessive-compulsive disorder, unspecified; F43.10 Post-traumatic stress disorder, unspecified; F60.3 Borderline personality disorder; M79.7 Fibromyalgia; E55.9 Vitamin D deficiency, unspecified; Z62.810 Personal history of physical and sexual abuse in childhood
CPT/HCPCS: 36415; 80053; 80061; 80307; 80320; 80329; 81003; 82306; 82607; 83036; 83735; 84443; 85025; 90853; 99222; 99231; 99238; A9270-GY; G0480

== ENCOUNTER 2018-09-27 15:47 | Emergency (ER) | payer OTHER ==
[2018-09-27 16:39] VITALS: BP 139/85
--- NOTE | 2018-09-27 17:03 | UC ---
General HPI - HPI Summary HPI Summary: pt noted a rash with some slight swelling on the front of her L ankle 2 days ago. she describes the rash as some red spots. the original spots from 2 days ago are resolving; however, she now notes some new spots on the top of her L toes and some spots on her lower L shultz. no hx injury, fever or joint pain. the rash does not itch or burn. she has no other rash on her body. - History of Current Complaint Chief Complaint: Ras Stated Complaint: LEFT FOOT SKIN CONCERN Time Seen by Provider: 09/27/18 16:56 Hx Obtained From: Patient Hx Last Menstrual Period: 6 yrs Onset/Duration: Gradual Onset Pain Intensity: 0 Aggravating: nothing Alleviating: nothing - Allergy/Home Medications Allergies/Adverse Reactions: Allergies Allergy/AdvReac Type Severity Reaction Status Date / Time bee venom protein (honey bee) Allergy Severe Anaphylatic Verified 09/27/18 16:28 Shock latex Allergy Severe SWELLING Verified 09/27/18 16:28 OF FACE,LIPS AND THROAT morphine Allergy Severe Difficulty Verified 09/27/18 16:28 Breathing Sulfa (Sulfonamide Allergy Severe DIFFICULTY Verified 09/27/18 16:28 Antibiotics) BREATHING. RASH Home Medications: Home Medications Amitriptyline TAB* [Elavil TAB*] 2 tab PO BEDTIME 09/27/18 [History Confirmed ] Furosemide TAB* [Lasix TAB*] 40 mg PO DAILY 09/27/18 [History Confirmed 09/27/18 ] Metoprolol Tartrate TAB* [Lopressor TAB*] 25 mg PO BID 09/27/18 [History Confirmed 09/27/18] metFORMIN* [Glucophage 500 MG TAB *] 500 mg PO DAILY 09/27/18 [History Confirmed 09/27/18] PMH/Surg Hx/FS Hx/Imm Hx - Additional Past Medical History Additional PMH: Fibromyalgia Endocrine History: Diabetes Cardiovascular History: Hypertension Other History Of: Negative For: HIV, Hepatitis B, Hepatitis C, Anticoagulant Therapy - Surgical History Surgical History: Yes Surgery Procedure, Year, and Place: 1990 & 1992 [place]. 2000 hysterectomy [place]. 2010 MENISCUS REPAIRED AND ARTHRITIS REMOVED FROM [facility] [place]. july 2015. 2011 GALL BLADDER REMOVED [place]. [facility] SURGERY-LEFT 07/16/15 - Family History Known Family History: Positive: Cardiac Disease, Hypertension, Diabetes - Social History Alcohol Use: None Substance Use Type: None Smoking Status (MU): Never Smoked Tobacco Have You Smoked in the Last Year: No - Immunization History Most Recent Influenza Vaccination: Unknown Most Recent Pneumonia Vaccination: Unknown Review of Systems All Other Systems Reviewed And Are Negative: Yes Constitutional: Negative: Fever Skin: Positive: Rash Musculoskeletal: Positive: Myalgia - chronic. Negative: Arthralgia Physical Exam Triage Information Reviewed: Yes Appearance: Well-Appearing Vital Signs: Initial Vital Signs Temp 98.2 F 09/27/18 16:33 Pulse 92 09/27/18 16:33 Resp 18 09/27/18 16:33 BP 139/85 09/27/18 16:33 Pulse Ox 95 09/27/18 16:33 Vital Signs Reviewed: Yes Eyes: Positive: Conjunctiva Clear ENT: Positive: Normal ENT inspection Neck: Positive: Supple Respiratory: Positive: Lungs clear Cardiovascular: Positive: RRR Abdomen Description: Positive: Nontender Musculoskeletal: Positive: ROM Intact Neurological: Positive: Alert Psychological: Positive: Age Appropriate Behavior Skin Exam: Normal, Other - Pt has about 1 dozen fading pink spots over her L anterior ankle and about another dozen more red spots on the L lower shlutz and dorsum of 4th toe. they are about 2mm in size and are flat plus painless. there are no vesicles or scale and no signs of bites. Course/Dx - Differential Dx - Multi-Symptom Differential Diagnoses: Other - the rash does not look cellulitis, fungal or c/ w an infestation. the initial rash is resolving and the rash is not bothersome thus will observe and refer to dermatology. - Diagnoses Provider Diagnosis: Rash in adult Discharge - Sign-Out/Discharge Documenting (check all that apply): Patient Departure All imaging exams completed and their final reports reviewed: No Studies - Discharge Plan Condition: Stable Disposition: HOME Patient Education Materials: Acute Rash (ED) Referrals: Mercedez Moss PA [Primary Care Provider] - If Needed Lesley Mora [Medical Doctor] - As Soon As Possible Additional Instructions: GO TO THE ER FOR FEVER, JOINT PAIN OR WORSENING. - Billing Disposition and Condition Condition: STABLE Disposition: Home - Attestation Statements Provider Attestation: Per institutional requirements, I have reviewed the chart, however, I was not consulted specifically or made aware of this patient by the midlevel provider. I did not personally evaluate, interact with , or disposition this patient.
== END 2018-09-27 17:26 | disposition home or self-care (01) ==
LOC: UCCORT 15:47
DX: R21 Rash and other nonspecific skin eruption (principal); I10 Essential (primary) hypertension; E11.9 Type 2 diabetes mellitus without complications; M79.7 Fibromyalgia; Z79.84 Long term (current) use of oral hypoglycemic drugs; Z79.899 Other long term (current) drug therapy; Z91.030 Bee allergy status; Z91.040 Latex allergy status; Z88.5 Allergy status to narcotic agent; Z88.2 Allergy status to sulfonamides
CPT/HCPCS: 99212; G0463

== ENCOUNTER 2018-10-27 12:56 | Emergency (ER) | payer OTHER ==
--- NOTE | 2018-10-27 17:21 | ED ---
Dizziness - HPI Summary HPI Summary: The patient is a 48 y/o F presenting to [facility] with a chief complaint of gradual onset dizziness and nausea over the last week. She reports that she is currently treating an ear infection with a steroid taper for the same duration, which is the second course of abx she's been taking. She used Doxycycline during the first course. She is still c/o ear pain and also BLE edema. Her symptoms are aggravated by movement specifically from supine to erect. Her symptoms are alleviated by rest. Hx of DM, lupus, thyroid disease, HTN, asthma, sleep apnea, GERD, arthritis, fibromyalgia, seizures, ovarian cancer. Surgical hx of sections, radial hysterectomy (LNMP: 10 years ago), cholecystectomy. FHx of cardiac disease, HTN, DM. Nonsmoker, no EtOH, no substance use. Liver biopsy on 11/10/18. - History Of Current Complaint Chief Complaint: EDDizziness Stated Complaint: POSS VERTIGO PER PT Time Seen by Provider: 10/27/18 17:01 Hx Obtained From: Patient Onset/Duration: Still Present, Gradually Timing: Days - oen week Severity Initially: Moderate Severity Currently: Moderate Character: Dizzy Aggravating Factor(s): Supine To Erect Alleviating Factor(s): Lying Down Associated Signs And Symptoms: Positive: Nausea, Other: - BLE edema - Allergies/Home Medications Allergies/Adverse Reactions: Allergies Allergy/AdvReac Type Severity Reaction Status Date / Time bee venom protein (honey bee) Allergy Severe Anaphylatic Verified 10/27/18 13:10 Shock latex Allergy Severe SWELLING Verified 10/27/18 13:10 OF FACE,LIPS AND THROAT morphine Allergy Severe Difficulty Verified 10/27/18 13:10 Breathing Sulfa (Sulfonamide Allergy Severe DIFFICULTY Verified 10/27/18 13:10 Antibiotics) BREATHING. RASH PMH/Surg Hx/FS Hx/Imm Hx Endocrine/Hematology History: Reports: Hx Diabetes, Hx Systemic Lupus Erythematosus, Hx Thyroid Disease - ON DAILY MEDS Denies: Hx Anticoagulant Therapy Cardiovascular History: Reports: Hx Hypertension Denies: Hx Pacemaker/ICD Respiratory History: Reports: Hx Asthma - ON DAILY MEDS, NOT NEED ED INHALER IN MONTHS, Hx Sleep Apnea - NO CPAP ( STATES DIDN'T USE, GAVE IT BACK) Denies: Hx Lung Cancer GI History: Reports: Hx Gastroesophageal Reflux Disease Denies: Hx Gall Bladder Disease, Hx Gastrointestinal Bleed, Hx Ulcer, Hx Urosepsis History: Denies: Hx Kidney Stones, Hx Renal Disease Musculoskeletal History: Reports: Hx Arthritis - OSTEOARTHRITIS, Hx Fibromyalgia , Other Musculoskeletal History - FIBROMYALGIA, DJD Denies: Hx Rheumatoid Arthritis, Hx Osteoporosis Sensory History: Reports: Hx Contacts or Glasses Denies: Hx Hearing Aid Opthamlomology History: Reports: Hx Contacts or Glasses Neurological History: Reports: Hx Seizures - Hx OF EPILEPSY, NO SEIZURES SINCE 2010, Other Neuro Impairments/Disorders - Fibromyalgia Denies: Hx Dementia, Hx Migraine, Hx Transient Ischemic Attacks (TIA) Psychiatric History: Reports: Hx Anxiety - ON MEDS DAILY, Hx Eating Disorder, Hx Depression, Hx Inpatient Treatment, Hx Schizophrenia, Other Psychiatric Issues/Disorders - borderline personality disorder; OCD Denies: Hx Panic Disorder, Hx Community Mental Health Tx, Hx Bipolar Disorder , Hx of Violent Episodes Against Others - Cancer History Cancer Type, Location and Year: OVARIAN/UTERINE- TESTED POSITIVE FOR GENETICS FOR OVARIAN CA. HAD COMPLETE HYSTERECTOMY Hx Chemotherapy: No Hx Radiation Therapy: No - Surgical History Surgery Procedure, Year, and Place: 1990 & 1992 [facility]. 2000 hysterectomy [place]. 2010 MENISCUS REPAIRED AND ARTHRITIS REMOVED FROM LT K[place]EE [place]. july 2015. 2011 GALL BLADDER REMOVED [place]. KNEE SURGERY-LEFT 07/16/15 Hx Anesthesia Reactions: No Infectious Disease History: No Infectious Disease History: Reports: Hx Shingles Denies: Traveled Outside the in Last 30 Days - Family History Known Family History: Positive: Cardiac Disease, Hypertension, Diabetes - Social History Alcohol Use: None Hx Substance Use: No Substance Use Type: Reports: None Hx Tobacco Use: No Smoking Status (MU): Never Smoked Tobacco Do You Chew or Dip Tobacco: No Have You Chewed or Dipped Tobacco in the LAST YEAR: No Have You Smoked in the Last Year: No Review of Systems Positive: Ear Ache Positive: Nausea Positive: Edema - BLE Neurological: Other - dizziness All Other Systems Reviewed And Are Negative: Yes Physical Exam - Summary Physical Exam Summary: VITAL SIGNS: Reviewed. GENERAL: Patient is a well-developed and obese female who is lying comfortable in the stretcher. Patient is not in any acute respiratory distress. HEAD AND FACE: No signs of trauma. No ecchymosis, hematomas or skull depressions. No sinus tenderness. EYES: PERRLA, EOMI x 2, No injected conjunctiva, no nystagmus. EARS: Hearing grossly intact. Ear canals and tympanic membranes are within normal limits. MOUTH: Oropharynx within normal limits. NECK: Supple, trachea is midline, no adenopathy, no JVD, no carotid bruit, no c- spine tenderness, neck with full ROM. CHEST: Symmetric, no tenderness at palpation LUNGS: Clear to auscultation bilaterally. No wheezing or crackles. CVS: Regular rate and rhythm, S1 and S2 present, no murmurs or gallops appreciated. ABDOMEN: Soft, non-tender. No signs of distention. No rebound no guarding, and no masses palpated. Bowel sounds are normal. EXTREMITIES: FROM in all major joints, no edema, no cyanosis or clubbing. NEURO: Alert and oriented x 3. No acute neurological deficits. Speech is normal and follows commands. SKIN: Dry and warm. GCS: 15. Triage Information Reviewed: Yes Vital Signs On Initial Exam: Initial Vitals Temp Pulse Resp BP Pulse Ox 97.1 F 90 16 169/96 95 10/27/18 13:07 10/27/18 13:07 10/27/18 13:07 10/27/18 13:07 10/27/18 13:07 Vital Signs Reviewed: Yes - Harned Coma Scale Best Eye Response: 4 - Spontaneous Best Motor Response: 6 - Obeys Commands Best Verbal Response: 5 - Oriented Coma Scale Total: 15 Diagnostics - Vital Signs Vital Signs Temp Pulse Resp BP Pulse Ox 10/27/18 16:25 98 F 81 16 139/74 95 10/27/18 14:31 98.4 F 87 16 142/68 100 10/27/18 13:07 97.1 F 90 16 169/96 95 - Laboratory Result Diagrams: 10/27/18 18:04 10/27/18 18:04 Lab Statement: Any lab studies that have been ordered have been reviewed, and results considered in the medical decision making process. - Radiology CXR Radiology Interpretation Completed By: Radiologist Summary of Radiographic Findings: No radiographic evidence of acute cardiopulmonary disease. ED physician has reviewed this radiology report. - CT Brain CT CT Interpretation Completed By: Radiologist Summary of CT Findings: Normal CT of the brain. ED physician has reviewed this radiology report. - EKG 1749 Cardiac Rate: NL - 84 BPM EKG Rhythm: Sinus Rhythm Summary of EKG Findings: No ST elevations. Re-Evaluation - Re-Evaluation First Eval Re-Evaluation Time: 18:50 Comment: I discussed results and discharge with the patient. Dizzy Course/Dx - Course Assessment/Plan: The patient is a 48 y/o F presenting to [facility] with a chief complaint of gradual onset dizziness and nausea over the last week. She reports that she is currently treating an ear infection with a steroid taper for the same duration, which is the second course of abx she's been taking. She used Doxycycline during the first course. She is still c/o ear pain and also BLE edema. Her symptoms are aggravated by movement specifically from supine to erect. Her symptoms are alleviated by rest. Hx of DM, lupus, thyroid disease, HTN, asthma, sleep apnea, GERD, arthritis, fibromyalgia, seizures, ovarian cancer. Surgical hx of sections, radial hysterectomy (LNMP: 10 years ago), cholecystectomy. FHx of cardiac disease, HTN, DM. Nonsmoker, no EtOH, no substance use. Liver biopsy on 11/10/18. Past medical history significant for unspecified mood disorder, hypertension. In the ED course we placed the patient is critical monitor, IV access was obtained, the patient was given fluids, Zofran for nausea and vomiting and meclizine for dizziness. Head CT impression: Normal CT of the brain. A chest x-ray impression: No radiographic evidence of acute pulmonary disease. Blood work without any significant abnormality. The patient is feeling better, however I believe that the patient would benefit from Ativan since meclizine has not been helping her. The patient also will be referred to ENT for further workup and management. At this point the patient will be discharged home with follow-up with PCP. At this point I discussed all the findings and test results with the patient. He was instructed to return to the emergency room immediately if any of the symptoms return or worsens. They understand and agree. Neurological exam before discharge: Patient is alert and oriented x 3. No acute neurological deficits. Patient vital signs are stable. Patient is to follow up with CPP in the next 2 3 days. They understand and agree. Plan of care was discussed with the patient and patient understands and agrees with the plan of care. All questions were answered at patient satisfaction. There were no further complaints or concerns. - Diagnoses Provider Diagnoses: Vertigo Discharge - Sign-Out/Discharge Documenting (check all that apply): Patient Departure - Patient will be discharged home. Patient Received Moderate/Deep Sedation with Procedure: No - Discharge Plan Condition: Stable Disposition: HOME Prescriptions: Diazepam TAB(*) [Valium TAB(*)] 5 mg PO TID PRN #10 tab MDD 3 PRN Reason: Vertigo Patient Education Materials: Vertigo (ED) Referrals: Dilan Farrell MD [Medical Doctor] - 3 Days Mercedez Moss PA [Primary Care Provider] - Additional Instructions: Follow up with Dr. Greer, ENT, in 2-3 days. RETURN TO THE EMERGENCY DEPARTMENT FOR ANY NEW OR WORSENING SYMPTOMS. - Billing Disposition and Condition Condition: STABLE Disposition: Home - Attestation Statements Document Initiated by Scribe: Yes Documenting Scribe: Mirta Lechuga Provider For Whom Jemma is Documenting (Include Credential): Dr. Bhupinder Eldridge MD Scribe Attestation: Mirta Rodriguez scribed for Dr. Bhupinder Eldridge MD on 10/27/18 at 1918. Scribe Documentation Reviewed: Yes Provider Attestation: The documentation as recorded by the Mirta mckinney accurately reflects the service I personally performed and the decisions made by me, Dr. Bhupinder Eldridge MD Status of Scribe Document: Ready
[2018-10-27] MEDS: NS 0.9% 1000 ML** 1,000 ML IV ONE (18:06)
[2018-10-27] MEDS: Meclizine TAB* 12.5 MG PO ONE (18:06)
[2018-10-27] MEDS: Ondansetron INJ* 2 MG/ML VIAL IV ONE (18:08)
[2018-10-27 18:14] LABS: ABS Lymphocytes 1.9 10^3/ul (1.0-4.8); ABS Monocytes 0.4 10^3/ul (0-0.8); ABS Neutrophils 4.2 10^3/ul (1.5-7.7); Eosinophil % 0.7 %; Hematocrit 39 % (35-47); Hemoglobin 13.1 g/dL (12.0-16.0); Lymphocyte % 29.3 %; Mean Corpuscular HGB Conc 33 g/dL (31-36); Mean Corpuscular Hemoglobin 30 pg (27-31); Mean Corpuscular Volume 89 fL (80-97); Mean Platelet Volume 7.9 fL (7.4-10.4); Platelet Count 253 10^3/uL (150-450); Red Blood Count 4.44 10^6 /uL (3.70-4.87); Red Cell Distribution Width 15 % (10-15); White Blood Count 6.6 10^3/uL (3.5-10.8)
[2018-10-27 18:31] LABS: ALT 213 U/L (7-52); AST 185 U/L (13-39); Albumin 4.1 g/dL (3.2-5.2); Albumin/Globulin Ratio 1.1 (1-3); Alkaline Phosphatase 161 U/L (34-104); Anion Gap 8 mmol/L (2-11); Blood Urea Nitrogen 16 mg/dL (6-24); C Reactive Protein 26.11 mg/L (<8.01); CO2 Carbon Dioxide 37 mmol/L (22-32); Calcium 10.9 mg/dL (8.6-10.3); Chloride 95 mmol/L (101-111); Creatine Kinase 56 U/L (10-223); EGFR African American 66.8 (>60); EGFR Non-African American 55.2 (>60); Globulin 3.7 g/dL (2-4); Glucose 105 mg/dL (70-100); Magnesium 2.1 mg/dL (1.9-2.7); Sodium 140 mmol/L (135-145); Total Protein 7.8 g/dL (6.4-8.9)
[2018-10-27 18:36] LABS: Urine Appearance Clear; Urine Bilirubin Negative (Negative); Urine Blood Negative (Negative); Urine Color Straw; Urine Glucose Negative (Negative); Urine Ketones Negative (Negative); Urine Nitrite Negative (Negative); Urine Protein Negative (Negative); Urine Specific Gravity 1.005 (1.010-1.030); Urine Urobilinogen Negative (Negative)
[2018-10-27 18:51] LABS: Urine Benzodiazepine Screen None Detected (None Detect); Urine Opiates Screen None Detected (None Detect)
[2018-10-27 19:08] LABS: Alcohol < 10 mg/dL (<10)
[2018-10-27 19:19] VITALS: BP 143/93
[2018-10-27 19:21] LABS: TSH (Thyroid Stimulating Horm) 1.74 mcIU/mL (0.34-5.60)
== END 2018-10-27 19:18 | disposition home or self-care (01) ==
LOC: ED 12:56
DX: R42 Dizziness and giddiness (principal); E11.9 Type 2 diabetes mellitus without complications; M32.9 Systemic lupus erythematosus, unspecified; Z79.899 Other long term (current) drug therapy
CPT/HCPCS: 36415; 70450; 71046; 80053; 80307; 80320; 81003; 82550; 83605; 83735; 83880; 84443; 84484; 85025; 86140; 93005; 96361; 96374; 99284; A9270-GY; G0480; J2405

== ENCOUNTER 2018-12-15 19:46 | Emergency (ER) | payer OTHER ==
--- OUTSIDE RECORDS SUMMARY | 2018-12-15 20:03 | XMS REPORT | Continuity of Care Document ---
:1970 External Reference #:[id number] Author Name Desiree Wright Care Team Providers Name Role Phone Kale Moss PA Care Team Information Demographer Unavailable Kale Moss PA Primary Care Physician Unavailable Payers Date Identification Numbers Payment Provider Subscriber Policy Number: [id number] Yony Perry PayID: [id number] [place] [address] Family History Date Family Member(s) Observation Comments Father Asthma And Allergies Father Diabetes Mother Asthma And Allergies Social History Type Date Description Comments Sex Female Marital Status 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 Recreational Drug Use Treated For Substance Abuse In The Past Allergies, Adverse Reactions, Alerts Active Allergies Reaction Severity Comments Date sulfa 07/12/2012 Latex 07/12/2012 Morphine 07/12/2012 Bee Sting 07/12/2012 Medications Active Medications SIG Qnty Indications Ordering Provider Date Diazepam one tab at night 5tabs Neri Cade, 12/09/2018 5mg Tablets M.D. Meclizine HCL 1 by mouth three Unknown 25mg Tablets times a day Metformin HCL 1 by mouth twice Unknown 500mg Tablets a day Furosemide 1 by mouth every Unknown 20mg Tablets day Lyrica Unknown 150mg Capsules Tizanidine HCL 1 by mouth three Unknown 4mg Capsules times a day as needed Aldactone 1 by mouth every Unknown 25mg Tablets day as needed edema Meloxicam 1 by mouth daily Unknown 15mg Tablets as needed with food Amitriptyline HCL Unknown 50mg Tablets Levothyroxine Sodium 1 by mouth every Unknown 100mcg day Tablets Rosuvastatin Calcium 1 times a day Unknown 5mg Tablets History Medications No Active Medications Unknown 11/22/2018 - 11/22/2018 Dexamethasone 2 by mouth post 2tabs Neri Cade, 11/14/2013 - 4mg Tablets op day 3 M.D. 07/25/2014 Ibuprofen Childrens 6 teaspoon by 600ml Neri Cade, 11/14/2013 - 100mg/5ML mouth every 6 M.D. 08/10/2014 Suspension hours as needed Acetaminophen 4 teaspoon every 400ml Neri Cade, 11/14/2013 - 160mg/5ML Elixir 6 hours M.D. 08/10/2014 Vitamin D3 2 tabs daily Unknown - 1000Unit Capsules 08/10/2014 Atorvastatin Calcium daily Unknown - 40mg Tablets 08/10/2014 Folic Acid 1 daily Unknown - 400mcg Tablets 08/10/2014 Viibryd use directed Unknown - 10&20&40mg Kit 07/25/2014 Restasis 2 x day Unknown - 0.05% Emulsion 08/10/2014 Tizanidine HCL Unknown - 4mg Tablets 11/21/2018 Lyrica Unknown - 200mg Capsules 11/21/2018 Hydroxychloroquine Sulfate Unknown - 200mg 11/21/2018 Tablets Restasis Unknown - 0.05% Emulsion 11/21/2018 Symbicort 2 puff twice a Unknown - 80-4.5mcg/Act Aerosol day 11/21/2018 Klor-Con M20 Unknown - 20Meq Tablets ER 11/21/2018 Levothyroxine Sodium 1 by mouth every Unknown - 25mcg Tablets day 11/21/2018 Ibuprofen Unknown - 400mg Tablets 11/21/2018 Atorvastatin Calcium 1 by mouth every Unknown - 40mg Tablets day 11/21/2018 Fluticasone Propionate 2 sprays both Unknown - 50mcg/Act nostrils every 11/21/2018 Suspension day Loratadine 1 by mouth every Unknown - 10mg Tablets day 11/21/2018 Hydrochlorothiazide 1 by mouth every Unknown - 25mg Tablets day 11/21/2018 Docusate Sodium Unknown - 11/21/2018 Calcium + D Unknown - 600+400 Tablets 11/21/2018 Pantoprazole Sodium 1 by mouth every Unknown - 40mg Tablets DR day 11/21/2018 Hydroxyzine HCL Unknown - 50mg Tablets 11/21/2018 Keppra Unknown - Tablets 10/05/2013 Levetiracetam Unknown - Tablets 10/05/2013 Levothyroxine Sodium 1 po qd 30tabs Unknown - 25mcg Tablets 08/10/2014 Ibuprofen 2 tabs twice Unknown - 400mg Tablets daily 08/10/2014 Calcium + D Unknown - Chewtabs 08/10/2014 Lisinopril/Hydrochlorothiaz Unknown - cy 08/10/2014 Tablets Tizanidine HCL 1 po q 8hrs prn 30caps Unknown - 4mg Capsules 08/10/2014 Potassium Unknown - 08/10/2014 Lyrica twice daily Unknown - 200mg Capsules 08/10/2014 Quetiapine Fumarate Unknown - 25mg Tablets 07/25/2014 Hydroxyzine HCL twice daily Unknown - 50mg Tablets 08/10/2014 Trazodone HCL Unknown - Tablets 08/10/2014 Loratadine 1 po qd 30tabs Unknown - 10mg Tablets 08/10/2014 Diphenhydramine HCL Unknown - 25mg Capsules 08/10/2014 Prazosin HCL Unknown - 2mg Capsules 07/25/2014 Sertraline HCL Unknown - 100mg Tablets 07/25/2014 Lamotrigine 2 tabs at Unknown - 25mg Tablets bedtime 07/25/2014 Ondansetron HCL q 6 hours prn 20tabs Unknown - 4mg Tablets 07/25/2014 Doc-Q-Lax Unknown - 100mg Tablets 08/10/2014 Hydroxychloroquine Sulfate 2 x day Unknown - 200mg 08/10/2014 Tablets Pantoprazole Sodium 1 by mouth every 30tabs Unknown - 40mg Tablets DR day 08/10/2014 Vital Signs Date Vital Result Comment 12/13/2018 1:50pm Weight 344.00 lb Height 64 inches 5'4" BMI (Body Mass Index) 59.0 kg/m2 BP Systolic 130 mmHg BP Diastolic 90 mmHg Heart Rate 94 /min O2 % BldC Oximetry 95 % Body Temperature 96.6 F Pain Level 4 12/06/2018 1:57pm Weight 344.00 lb Height 64 inches 5'4" BMI (Body Mass Index) 59.0 kg/m2 BP Systolic 128 mmHg BP Diastolic 80 mmHg Heart Rate 101 /min O2 % BldC Oximetry 91 % Body Temperature 97.5 F Pain Level 4 11/22/2018 1:42pm Weight 344.00 lb Height 64 inches 5'4" BMI (Body Mass Index) 59.0 kg/m2 BP Systolic 123 mmHg BP Diastolic 64 mmHg Heart Rate 114 /min O2 % BldC Oximetry 93 % Body Temperature 96.1 F Pain Level 0 08/11/2014 1:06pm Weight 300.00 lb Height 64 inches 5'4" BMI (Body Mass Index) 51.5 kg/m2 07/26/2014 11:50am Weight 300.00 lb Height 64 inches 5'4" BMI (Body Mass Index) 51.5 kg/m2 BP Systolic 110 mmHg BP Diastolic 68 mmHg Heart Rate 102 /min O2 % BldC Oximetry 98 % Body Temperature 97.8 F 10/05/2013 9:26am Weight 279.00 lb per pt. Height 64 inches 5'4" BMI (Body Mass Index) 47.9 kg/m2 BP Systolic 140 mmHg BP Diastolic 94 mmHg Heart Rate 84 /min O2 % BldC Oximetry 96 % Body Temperature 97.1 F [place] Score 15 not using cpap 08/18/2012 1:18pm Weight 284.00 lb Height 64 inches 5'4" BMI (Body Mass Index) 48.7 kg/m2 BP Systolic 124 mmHg BP Diastolic 86 mmHg Heart Rate 108 /min O2 % BldC Oximetry 96 % Body Temperature 97.4 F 07/12/2012 2:16pm Weight 284.00 lb Height 64 inches 5'4" BMI (Body Mass Index) 48.7 kg/m2 BP Systolic 120 mmHg BP Diastolic 72 mmHg Heart Rate 110 /min O2 % BldC Oximetry 95 % Body Temperature 97.2 F Results Test Date Facility Test Result H/L Range Note Laboratory test 08/30/2014 [facility] Immunoglobulin 19 IU/mL 0-[address],[place] [address] [phone] Allergens,Zone 1 08/30/2014 [facility] mRast Class (Text See Note [address] Only) [place] [address] [phone] D Pteronyssinus <0.10 Advjm3rL/L D Farinae Mite <0.10 Kcbot3aD/L Cat Hair/Dander <0.10 Ydili7pV/L Dog Hair/Dander <0.10 Wtlyk8aO/L [place] <0.10 Vbdcf5aI/L [place] Grass <0.10 Wdepu9cE/L [place] Grass <0.10 Gqvip0sQ/L Cockroach,[place] <0.10 Jnuva8rA/L Penicillium Not <0.10 Fysln9oR/L Cladosporium Herbarum <0.10 Cixsh0qG/L Apergillis Fumigatus Ige <0.10 Lfdzn6hF/L Mucor Racemosus <0.10 Ripuc4rC/L Alternaria Tenuis <0.10 Kgmzd0nL/L Stemphylium Bot <0.10 Fpiwm1rZ/L Birch,White <0.10 Paach7tK/L [place],White <0.10 Dtkss6hG/L Elm,[place] (White) <0.10 Qudsd5nI/L Jorge Alberto,White <0.10 Haenh3yJ/L Hazelnut Tree <0.10 Qqycs8uF/L [place],White <0.10 Fvtyr2qA/L [place],White <0.10 Fuhtx6mM/L [place] <0.10 Eqaod8zC/L Ragweed,Short/ <0.10 Lyxft1sV/L Mugwort <0.10 Kufmq5hN/L Plantain,Japanese <0.10 Rfmmw6zT/L Pigweed,Rough <0.10 Hydih2mJ/L Sheep [place] (DO <0.10 Qjonj9pT/L Nettle <0.10 Zxldp3iD/L Maple/Clarinda Ige T001 <0.10 Xfxnm5gW/L 2 1 Levels of Specific IgE Class Description of Class ----- < 0.10 0 Negative 0.10 - 0.31 0/I Equivocal/Low 0.32 - 0.55 I Low 0.56 - 1.40 II Moderate 1.41 - 3.90 III High 3.91 - 19.00 IV Very High 19.01 - 100.00 V Very High >100.00 Very High 2 Test(s) [id number] Cockroach, [place]; 498473- [id number] Jam Guido were developed and had performance characteristics determined by [employer]. These tests have not been cleared or approved by the U.S. Food and Drug Administration. The FDA has determined that such clearance or approval is not necessary. These tests are used for clinical purposes. These should not be regarded as investigational or for research. Performed at: [address] [id number] Dredge Captain: Jatinder Jolly MD, Phone: [phone] Performed at: [address] [id number] Dredge Captain: Constance Sorto MD, Phone: [phone] Procedures Date Code Description Status 12/06/2018 47590 Ultrasound Head/Neck Completed 12/06/2018 06333 Nasal Endoscopy, Diag. Completed 08/30/2014 [id number] Mammogram Completed 08/21/2014 08989 Sleep Stage 4 Or More Cpap Titra Completed 07/26/2014 61681 Nasal Endoscopy, Diag. Completed 09/05/2012 96752 Sleep Stage 4 Or More Cpap Titra Completed 07/18/2012 11327 Sleep Staging 4Or More Para Completed 07/12/2012 80264 Fiberoptic Laryngoscopy,Diag. Completed Encounters Type Date Location Provider Dx Diagnosis Office Visit 12/06/2018 Main Office Neri Cade M.D. E03.9 Hypothyroidism, 1:45p unspecified G47.33 Obstructive sleep apnea (adult) (pediatric) J32.9 Chronic sinusitis, unspecified H60.8x1 Other otitis externa, right ear Office Visit 11/22/2018 1:15p Main Office Neri Cade, G47.33 Obstructive sleep M.D. apnea (adult) (pediatric) H60.93 Unspecified otitis externa, bilateral Office Visit 08/11/2014 1:00p Main Office Neri Cade, 473.9 Sinusitis Chronic M.D. Unspec 995.3 Allergy Unspec 327.23 Obstructive Sleep Apnea Adult & Pediatric 478.0 Hypertrophy Nasal Turbinates 470 Deviated Nasal Septum Office Visit 07/26/2014 11:15a Main Office Shania Delcid, 473.9 Sinusitis Chronic ANGLE ROLL OPERATOR Unspec 327.23 Obstructive Sleep Apnea Adult & Pediatric 474.10 Hypertrophy Tonsils W/ Adenoids 478.0 Hypertrophy Nasal Turbinates 470 Deviated Nasal Septum Office Visit 10/05/2013 9:30a Main Office Shania A 327.23 Obstructive Sleep Bhavin, ANGLE ROLL OPERATOR Apnea Adult & Pediatric 780.50 Sleep Disturbance Unspec Office Visit 08/18/2012 1:15p Main Office Shania A 327.23 Obstructive Sleep Delcid, ANGLE ROLL OPERATOR Apnea Adult & Pediatric 786.09 Dyspnea & Respiratory Abnormalities Other 780.50 Sleep Disturbance Unspec Office Visit 07/12/2012 1:30p Main Office Shania A 786.09 Dyspnea & Delcdi, ANGLE ROLL OPERATOR Respiratory Abnormalities Other 780.50 Sleep Disturbance Unspec
--- OUTSIDE RECORDS SUMMARY | 2018-12-15 20:13 | XMS REPORT | Continuity of Care Document ---
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.] Result H/L Range Note Laboratory test 08/30/2014 [facility] Immunoglobulin 19 IU/mL 0-[address],[place] [address] [phone] Allergens,Zone 1 08/30/2014 [facility] mRast Class (Text See Note [address] Only) [place] [address] [phone] D Pteronyssinus <0.10 Avrwy1uV/L D Farinae Mite <0.10 Uhkug7eD/L Cat Hair/Dander <0.10 Ligft6zG/L Dog Hair/Dander <0.10 Hqcpc9kK/L Blue[place] <0.10 Mvuuy2wE/L Berm[place] Grass <0.10 Xjlma6lE/L Bahia Grass <0.10 Sjfri0qC/L Cockroach,Bahamian <0.10 Fkeih0sR/L Penicillium Not <0.10 Hfgpg3tD/L Cladosporium Herbarum <0.10 Cltbg6eQ/L Apergillis Fumigatus Ige <0.10 Ipcij4qK/L Mucor Racemosus <0.10 Ujekz2dS/L Alternaria Tenuis <0.10 Klazb3xK/L Stemphylium Bot <0.10 Bvdej7xV/L Birch,White <0.10 Zakhq3jW/L [place],White <0.10 Agada7aA/L Elm,Bahamian (White) <0.10 Uxddg1lD/L Jorge Alberto,White <0.10 Vuqtl8bH/L Hazelnut Tree <0.10 Kltje5yO/L [place],White <0.10 Peqwq7mA/L [place],White <0.10 Faboj2cE/L [place]ountain <0.10 Nswmf5fK/L Ragweed,Short/ <0.10 Synxm0oG/L Mugwort <0.10 Rknee7xV/L Plantain,Hungarian <0.10 Ifavk9oH/L Pigweed,Rough <0.10 Ldjlm5lV/L Sheep [place] (DO <0.10 Aafjw6hJ/L Nettle <0.10 Xdkzz2wK/L Maple/[place] Ige T001 <0.10 Embni0rI/L 2 1 Levels of Specific IgE Class Description of Class ----- < 0.10 0 Negative 0.10 - 0.31 0/I Equivocal/Low 0.32 - 0.55 I Low 0.56 - 1.40 II Moderate 1.41 - 3.90 III High 3.91 - 19.00 IV Very High 19.01 - 100.00 V Very High >100.00 Very High 2 Test(s) 200096-G525-QgL Cockroach, Bahamian; 781274- W448-ZzP [place] were developed and had performance characteristics determined by [facility]. These tests have not been cleared or approved by the U.S. Food and Drug Administration. The FDA has determined that such clearance or approval is not necessary. These tests are used for clinical purposes. These should not be regarded as investigational or for research. Performed at: [facility] Lab[address] [id number] Can Cleaner: Jatinder oJlly MD, Phone: [phone] Performed at: [facility] Lab[address] [id number] Can Cleaner: Constance Sorto MD, Phone: [phone] Procedures Date Code Description Status 08/30/2014 37706961 Mammogram Completed 08/21/2014 85521 Sleep Stage 4 Or More Cpap Titra Completed 07/26/2014 63854 Nasal Endoscopy, Diag. Completed 09/05/2012 47266 Sleep Stage 4 Or More Cpap Titra Completed 07/18/2012 99182 Sleep Staging 4Or More Para Completed 07/12/2012 27403 Fiberoptic Laryngoscopy,Diag. Completed Encounters Type Date Location Provider Dx Diagnosis Office Visit 11/22/2018 Main Office Neri Cade M.D. G47.33 Obstructive sleep 1:15p apnea (adult) (pediatric) H60.93 Unspecified otitis externa, bilateral Office Visit 08/11/2014 1:00p Main Office Neri Cade, 473.9 Sinusitis Chronic M.D. 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 327.23 Obstructive Sleep Apnea Adult & Pediatric 474.10 Hypertrophy Tonsils W/ Adenoids 478.0 Hypertrophy Nasal Turbinates 470 Deviated Nasal Septum Office Visit 10/05/2013 9:30a Main Office Shania Edwards 327.23 Obstructive Sleep Bhavin, AUGER MILL OPERATOR Apnea Adult & Pediatric 780.50 Sleep Disturbance Unspec Office Visit 08/18/2012 1:15p Main Office Shania Edwards 327.23 Obstructive Sleep Bhavin, AUGER MILL OPERATOR Apnea Adult & Pediatric 786.09 Dyspnea & Respiratory Abnormalities Other 780.50 Sleep Disturbance Unspec Office Visit 07/12/2012 1:30p Main Office Shania A 786.09 Dyspnea & Bhavin, AUGER MILL OPERATOR Respiratory Abnormalities Other 780.50 Sleep Disturbance Unspec
[2018-12-15 20:15] VITALS: BP 115/60
--- OUTSIDE RECORDS SUMMARY | 2018-12-15 20:23 | XMS REPORT | Continuity of Care Document ---
:1970 External Reference #:[id number] Author Name Concepción Lay Care Team Providers Name Role Phone Kale Moss PA Care Team Information Vice President Network Unavailable Kale Moss PA Primary Care Physician Unavailable Payers Date Identification Numbers Payment Provider Subscriber Policy Number: [id number] Yony Perry PayID: [id number] [facility] [place] [address] Family History Date Family Member(s) Observation Comments Father Asthma And Allergies Father Diabetes Mother Asthma And Allergies Social History Type Date Description Comments Sex Unknown Marital Status 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 [...] 08/10/2014 Vital Signs Date Vital Result Comment 11/22/2018 1:42pm Weight 344.00 lb Height 64 [...] Oximetry 96 % Body Temperature 97.1 F [place] Score 15 not using cpap 08/18/2012 1:18pm [...] Result H/L Range Note Laboratory test 08/30/2014 [facility] Immunoglobulin 19 IU/mL 0-[address],[place] [address] [phone] Allergens,Zone 1 08/30/2014 [facility] mRast Class (Text See Note [address] Only) [place], [place] [id number] [phone] D Pteronyssinus <0.10 Dulxh6vH/L D Farinae Mite <0.10 Yddnk1eM/L Cat Hair/Dander <0.10 Pldzc0oW/L Dog Hair/Dander <0.10 Rhdas7bB/L [place] <0.10 Giqbu0wL/L [place] Grass <0.10 Gtwwx4dT/L Bahia Grass <0.10 Kojqu5rF/L Cockroach,Libyan <0.10 Wnxlg0aZ/L Penicillium Not <0.10 Dxzxf6rH/L Cladosporium Herbarum <0.10 Onqsi3iQ/L Apergillis Fumigatus Ige <0.10 Gwvas3bS/L Mucor Racemosus <0.10 Vltly6sI/L Alternaria Tenuis <0.10 Igqqk5bK/L Stemphylium Bot <0.10 Ovqon7gH/L Birch,White <0.10 Zwrdo2jV/L [place],White <0.10 Xlcqv3wS/L Elm,Libyan (White) <0.10 Xxydq0xF/L Jorge Alberto,White <0.10 Uuxzu2yK/L Hazelnut Tree <0.10 Dygkk5zM/L [place],White <0.10 Mwruv0zO/L [place],White <0.10 Edclc4kE/L [place],Mountain <0.10 Bzkpi9cU/L Ragweed,Short/ <0.10 Xklrt4mA/L Mugwort <0.10 Wqoar3iO/L Plantain,Romansh <0.10 Qposg1mO/L Pigweed,Rough <0.10 Jzgls1bT/L Sheep [place] (DO <0.10 Ggfvy3sI/L Nettle <0.10 Acweu3nK/L Maple/[place] Ige T001 <0.10 Yddfs5dC/L 2 1 Levels of Specific IgE Class Description of Class ----- < 0.10 0 Negative 0.10 - 0.31 0/I Equivocal/Low 0.32 - 0.55 I Low 0.56 - 1.40 II Moderate 1.41 - 3.90 III High 3.91 - 19.00 IV Very High 19.01 - 100.00 V Very High >100.00 Very High 2 Test(s) 116156-W143-UzW Cockroach, Libyan; 160769- G882-AlS Jam Guido were developed and had performance characteristics determined by [facility]. These tests have not been cleared or approved by the U.S. Food and Drug Administration. The FDA has determined that such clearance or approval is not necessary. These tests are used for clinical purposes. These should not be regarded as investigational or for research. Performed at: - [address] [id number] Business Proposal Rep: Jatinder Jolly MD, Phone: [phone] Performed at: [facility] Lab[address] [id number] Business Proposal Rep: Constance Sorto MD, Phone: [phone] Procedures Date Code Description Status 08/30/2014 [id number] Mammogram Completed 08/21/2014 14607 Sleep Stage 4 Or More Cpap Titra Completed 07/26/2014 31097 Nasal Endoscopy, Diag. Completed 09/05/2012 14228 Sleep Stage 4 Or More Cpap Titra Completed 07/18/2012 56298 Sleep Staging 4Or More Para Completed 07/12/2012 24682 Fiberoptic Laryngoscopy,Diag. Completed Encounters Type Date Location Provider Dx Diagnosis Office Visit 08/11/2014 Main Office Neri Cade M.D. 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 327.23 Obstructive Sleep Apnea Adult & Pediatric 474.10 Hypertrophy Tonsils W/ Adenoids 478.0 Hypertrophy Nasal Turbinates 470 Deviated Nasal Septum Office Visit 10/05/2013 9:30a Main Office Shania Edwards 327.23 Obstructive Sleep RAMIREZ Delcid Apnea Adult & Pediatric 780.50 Sleep Disturbance Unspec Office Visit 08/18/2012 1:15p Main Office Shania Edwards 327.23 Obstructive Sleep RAMIREZ Delcid Apnea Adult & Pediatric 786.09 Dyspnea & Respiratory Abnormalities Other 780.50 Sleep Disturbance Unspec Office Visit 07/12/2012 1:30p Main Office Shania Edwards 786.09 Dyspnea & RAMIREZ Delcid Respiratory Abnormalities Other 780.50 Sleep Disturbance Unspec Plan of Treatment Future Appointment(s):12/06/2018 1:45 pm - Neri Cade M.D. at Main Office
--- NOTE | 2018-12-15 20:30 | UC ---
Eye Complaint HPI - History of Current Complaint Chief Complaint: UCEye Stated Complaint: RT EYE CONCERN Time Seen by Provider: 12/15/18 20:07 Hx Last Menstrual Period: 6 yrs Pain Intensity: 0 - Allergies/Home Medications Allergies/Adverse Reactions: Allergies Allergy/AdvReac Type Severity Reaction Status Date / Time bee venom protein (honey bee) Allergy Severe Anaphylatic Verified 12/15/18 20:04 Shock latex Allergy Severe SWELLING Verified 12/15/18 20:04 OF FACE,LIPS AND THROAT morphine Allergy Severe Difficulty Verified 12/15/18 20:04 Breathing Sulfa (Sulfonamide Allergy Severe DIFFICULTY Verified 12/15/18 20:04 Antibiotics) BREATHING. RASH Home Medications: Home Medications Thyroid TAB* [Thyroid TAB 15 MG*] 100 mg DAILY 12/15/18 [History Confirmed 12/15] PMH/Surg Hx/FS Hx/Imm Hx Other History Of: Negative For: HIV, Hepatitis B, Hepatitis C, Anticoagulant Therapy - Surgical History Surgical History: Yes Surgery Procedure, Year, and Place: 1990 & 1992 [facility]. 2000 hysterectomy [place]. 2010 MENISCUS REPAIRED AND ARTHRITIS REMOVED FROM LT KNEE [place]. july 2015. 2011 GALL BLADDER REMOVED [place]. KNEE SURGERY-LEFT 07/16/15 - Family History Known Family History: Positive: Cardiac Disease, Hypertension, Diabetes - Social History Alcohol Use: None Substance Use Type: None Smoking Status (MU): Never Smoked Tobacco Have You Smoked in the Last Year: No - Immunization History Most Recent Influenza Vaccination: Unknown Most Recent Pneumonia Vaccination: Unknown Physical Exam Vital Signs: Initial Vital Signs Temp 96.9 F 12/15/18 20:12 Pulse 103 12/15/18 20:12 Resp 16 12/15/18 20:12 BP 115/60 12/15/18 20:12 Pulse Ox 97 12/15/18 20:12 Discharge - Discharge Plan Referrals: Mila Sifuentes [Primary Care Provider] -
--- OUTSIDE RECORDS SUMMARY | 2018-12-15 20:33 | XMS REPORT | Continuity of Care Document ---
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 Meir Moss PA Primary Care Physician Unavailable Payers Date Identification Numbers Payment Provider Subscriber Policy Number: [id number] [place] Medicaid Yasmin Perry PayID: [id number] [address] [address] [place] [address] Onset: 2016 Policy Number: [id number] [facility] Yasmin Perry Group Name: [address] PayID: [id number] [place] [address] Problems Active Problems Provider Date Family history of ischemic heart Luis Bartholomew M.D., Onset: 11/16/2018 disease and other diseases of the [facility] circulatory system Edema Luis Bartholomew M.D., Onset: 11/16/2018 [facility] Chondromalacia of patella Rbobie Henley MD Onset: 06/30/2011 Derangement of lateral meniscus Robbie Henley MD Onset: 04/15/2011 Localized, primary osteoarthritis Robbie Henley MD Onset: 03/26/2011 Derangement of medial meniscus Robbie Henley MD Onset: 03/26/2011 Benign essential hypertension Hoda Saenz, [facility] Onset: 08/04/2016 Family History Date Family Member(s) Observation Comments Father Diabetes Father Heart Disease Father Heart Attack Father Mitral Valve Prolapse Father Pacemaker Father High Blood Pressure Mother Diabetes Mother Heart Disease Mother High Blood Pressure Aunt Ovarian Cancer Aunt Uterine Cancer Social History Type Date Description Comments Sex Unknown Lives With Roommate Lives at a safe house. Diet Patient follows no dietary restrictions Occupation Disabled ADL's/IADL's Dependent with all ADL's Tobacco Use Start: Unknown End: Former Cigarette Smoker Unknown Smoking Status Reviewed: 11/16/18 Former Cigarette Smoker ETOH Use Has consumed alcohol in the past Recreational Drug Use Former Drug User pt. states she used to do cocaine and many other drugs. pt gave a list of meds she can not have due to her past addiction. Allergies, Adverse Reactions, Alerts Active Allergies Reaction Severity Comments Date Sulfa Drugs rash and difficult breathing 02/08/2010 Morphine 06/28/2012 Latex 06/28/2012 Albuterol 07/15/2018 Bee Sting 07/15/2018 Medications Active Medications SIG Qnty Indications Ordering Provider Date Losartan 1 by mouth every 90tabs uLis Bartholomew 11/16/2018 Potassium/Hydrochlorot mickey Santiago M.D., [facility] hiazide 100-25mg Tablets Diazepam 1 tab by mouth Unknown 5mg Tablets twice a day as needed for muscle spasm Vitamin D3 1 by mouth every Unknown 2000Unit day Capsules Loratadine 1 by mouth every Unknown 10mg Tablets day Meclizine HCL one tab by mouth Unknown 25mg three times a Tablets day as needed vertigo Furosemide 1 by mouth every Unknown 20mg Tablets day Levothyroxine Sodium 1 by mouth every Unknown day 100mcg Tablets Tizanidine HCL take 1 tablet by Unknown 4mg mouth every 8 Tablets hours as needed Meloxicam 1 by mouth every Unknown 15mg Tablets day Amitriptyline HCL take one - two Unknown 50mg tablet by mouth Tablets at bedtime Multivitamin Adult 1 by mouth every Unknown day Tablets Metoprolol Tartrate Take One Tablet Unknown 50mg By Mouth Twice A Tablets Day Magnesium 1 po daily , 2 Unknown 400mg Tablets in pm Lyrica po bid Unknown 200mg Capsules History Medications Nabumetone Take One Tablet 60tabs Rohit Tran, 08/15/2016 - 750mg Tablets By Mouth Twice M.D. Unknown A Day With Food Diclofenac Sodium take 1 tablet 60tabs Rohit Tran, 08/04/2016 - 75mg Tablets DR by mouth twice M.D. 08/15/2016 daily with food Hydrocodone/Acetaminophen 1 tab by mouth 25tabs Robbie Henley 2010 - 5-325mg every 4 hours A., 05/21/2011 Tablets as needed postop Aspirin Buffered take 2 tabs by 28taRobbie Don 05/07/2011 - 325mg Tablets mouth twice a A., 05/21/2011 day Acetaminophen One to two tabs 50taRobbie Don 05/01/2011 - 325mg Tablets by mouth every A., 05/21/2011 6 hrs as needed for pain Proair HFA 2 puffs q4h prn Unknown - 108(90Base) mcg/ac 08/03/2016 Aerosol Zoloft 1 by mouth Unknown - 50mg Tablets every night 05/21/2011 Tizanidine HCL 2 by mouth at Unknown - 4mg Tablets bedtime 08/03/2016 Hydroxyzine HCL 1 tab tid Unknown - 50mg Tablets 08/03/2016 Docqlace po bid Unknown - 100mg Capsules Unknown Doxepin HCL 1 tab po qd prn 30caps Unknown - 10mg Capsules 08/03/2016 Levetiracetam 1 po qd Unknown - 500mg Tablets 08/03/2016 Q-Pap Unknown - 325mg Tablets 08/03/2016 Sertraline HCL 1 po qd 30tabs Unknown - 50mg Tablets 08/03/2016 Ibuprofen prn Unknown - 400mg Tablets 08/04/2016 Calcium 500 + D bid Unknown - [id number] Unknown Tablets Potassium qd Unknown - 99mg Tablets 09/30/2016 Trazodone HCL qhs Unknown - 100mg Tablets 08/04/2016 Tramadol HCL as needed Unknown - 50mg Tablets Unknown Pantoprazole Sodium qd Unknown - 20mg Tablets DR Unknown Vitamin D 1 by mouth Unknown - 2000Unit Capsules every day 08/04/2016 Keppra 1500MG bid Unknown - 1000mg Tablets 08/03/2016 Levothyroxine Sodium 1 po qd Unknown - 25mcg Tablets 08/03/2016 Claritin prn Unknown - 60mg Capsules 03/23/2011 Zanaflex hs Unknown - 4mg Capsules 03/23/2011 Cymbalta 1 po qd Unknown - 60mg Caps DR Part 03/23/2011 Trazodone HCL po qhs Unknown - 150mg Tablets 03/23/2011 Ibuprofen prn 180tabs Unknown - 600mg Tablets 05/21/2011 Premarin po qd Unknown - 0.3mg Tablets Unknown Colace 1 po bid Unknown - 100mg Capsules 05/21/2011 Janumet 1 po qd Unknown - 50-500mg Tablets 03/23/2011 Hydrochlorothiazide 1 po qd 90tabs Unknown - 25mg Tablets 08/03/2016 Hydroxyzine HCL 1 three times a Unknown - 50mg Tablets day 05/21/2011 Hydroxyzine Pamoate po bid prn Unknown - 25mg Capsules 08/03/2016 Loratadine 1 po qd Unknown - 10mg Tablets 08/04/2016 Metoprolol Tartrate 1 po bid 180tabs Unknown - 50mg Tablets 08/03/2016 Mirtazapine 1 po qhs Unknown - 45mg Tablets 08/03/2016 Prazosin HCL po qhs Unknown - 2mg Capsules 08/03/2016 Medications Administered in Office Medication SIG Qnty Indications Ordering Provider Date Methylprednisolone Hoda [facility], 08/15/2016 (Depomedrol) 80mg injection RPAC Injection Methylprednisolone Hoda [facility], 08/15/2016 (Depomedrol) 80mg injection RPAC Injection Immunizations CPT Code Status Date Vaccine Lot # [id number] Given 01/23/2009 Pneumovax Injection 84555 Given 01/23/2009 flu vaccination Vital Signs Date Vital Result Comment 11/16/2018 7:04am BP Systolic Sitting Left Arm 160 mmHg BP Diastolic Sitting Left Arm 100 mmHg Heart Rate 84 /min Respiratory Rate 20 /min Height 64 inches 5'4" Weight 353.00 lb BMI (Body Mass Index) 60.6 kg/m2 BSA (Body Surface Area) 2.49 m2 [place] body weight in kilograms 54 kg Both Visual Acuity Near 97 - r Right Visual Acuity Near 97 - r 08/04/2016 1:11pm BP Systolic Sitting Right Arm 137 mmHg BP Diastolic Sitting Right Arm 87 mmHg Heart Rate 99 /min Height 64 inches 5'4" Weight 330.25 lb BMI (Body Mass Index) 56.7 kg/m2 BSA (Body Surface Area) 2.42 m2 [place] body weight in kilograms 54 kg 06/28/2012 11:43am BP Systolic Sitting Right Arm 120 mmHg BP Diastolic Sitting Right Arm 64 mmHg Height 64 inches 5'4" Weight 280.00 lb BMI (Body Mass Index) 48.1 kg/m2 08/26/2011 1:07pm Height 63.5 inches 5'3.50" Weight 286.00 lb BMI (Body Mass Index) 49.9 kg/m2 05/08/2011 11:55am Height 63.5 inches 5'3.50" Weight 301.00 lb BMI (Body Mass Index) 52.5 kg/m2 03/26/2011 1:42pm Height 64 inches 5'4" Weight 308.00 lb BMI (Body Mass Index) 52.9 kg/m2 Results Test Date Facility Test Result H/L Range Note Laboratory test 05/08/2011 [facility] Act Partial 28.1 seconds 23.4-37.4 1 finding [address] [facility] [place] [address] [phone] Urine HCG (Qualitative) NEGATIVE Negative 2 Protime 05/08/2011 [facility] Protime 12.5 seconds 12.2-15.2 [address] [place] [address] [phone] Inr 0.9 0.9-1.1 3 CBC 05/08/2011 [facility] White Blood Count 4.7 K/uL 3.1-10.7 [address] [place] [address] [phone] Red Blood Count 4.55 M/uL 3.90-5.40 Hemoglobin 12.6 gm/dL 11.6-15.8 Hematocrit 38.0 % 36.0-46.1 Mean Cell Volume 83.5 fl 80.9-99.0 Mean Corpuscular HGB 27.7 pg 25.9-32.7 Mean Corpuscular HGB Conc 33.2 g/dL 30.8-34.3 Platelet Count 299 K/uL 155-360 Red Cell Distri Width %CV 13.5 % 11.7-14.4 Mean Platelet Volume 10.1 fL 8.9-12.4 1 Is patient on heparin protocol? N Is patient on anticoagulants? Unknown QUERY: Anticoagulant Therapy? QUERY: Date of Last Dose: QUERY: Time of Last Dose: 2 FIRST MORNING SPECIMENS GENERALLY CONTAIN THE HIGHEST CONCENTRATION OF HCG AND ARE RECOMMENDED FOR EARLY DETECTION OF . 3 THERAPEUTIC INR RANGE: 2.0 - 3.0 DVT, Pulmonary embolus, prophylaxis against venous thrombosis or systemic embolization in high risk patients. 2.5 - 3.5 Mechanical heart valves Procedures Date Code Description Status 11/16/2018 07971 EKG-Tracing And Report Completed 08/15/2016 11712 Asp./Injection major joint Completed 08/15/201660878 Asp./Injection major joint Completed 08/04/2016 72203 Radiology, Distal Femur--Knee 1 Or 2 Views Completed 10/21/2012 27711 EKG Interpretation And Report Only Completed 06/28/2012 74753 Radiology, Knee 3 Views Completed 06/20/2011 18237 Radiology, Knee 3 Views Completed 05/14/2011 74676 Arthroscopy w/meniscectomy including meniscal shaving Completed 05/14/2011 23973 Chrondroplasty debridement/shaving of articular cartilage Completed 05/14/2011 68063 Anesthesia, Knee Joint Surgery Open/Surg Arthroscopic,NOS Completed 09/06/2010 45422 EKG Interpretation And Report Only Completed 02/15/2010 32038 Reopening of recent laparotomy Completed 02/15/2010 64709 Anesthesia, Lower Abdomen Surgery Not Otherwise Spec Completed Encounters Type Date Location Provider Dx Diagnosis Office Visit 11/16/2018 Cardiology Office Luis Bartholomew R60.0 Localized edema 7:00a Amisha Santiago, FACC I10 Essential (primary) hypertension Z82.49 Family hx of ischem heart dis and oth dis of the circ sys Office Visit 10/13/2016 Orthopaedic Marc, M17.12 Unilateral primary 11:00a Office Amisha Bee osteoarthritis, left knee Office Visit 09/30/2016 Orthopaedic Dany, M17.12 Unilateral primary 10:15a Office Hoda Garcia, osteoarthritis, left RPAC knee M17.12 Unilateral primary osteoarthritis, left knee M25.562 Pain in left knee M25.562 Pain in left knee Office Visit 09/02/2016 9:30a Orthopaedic Office Hoda Saenz M25.562 Pain in S., RPAC left knee M25.562 Pain in left knee M17.12 Unilateral primary osteoarthritis, left knee M17.12 Unilateral primary osteoarthritis, left knee Office Visit 08/04/2016 Orthopaedic Dany, M17.12 Unilateral primary 1:00p Office Hoda Garcia, osteoarthritis, left RPAC knee M25.562 Pain in left knee M25.562 Pain in left knee M17.12 Unilateral primary osteoarthritis, left knee Office Visit 08/09/2012 Honorio Henley 717.7 Chondromalacia Of 1:00p Office Robbie Lambert MD [place] 715.16 Osteoarthrosis Localized Prim Lower Leg Office Visit 06/28/2012 Honorio Henley 717.7 Chondromalacia Of 11:40a Office Robbie Lambert MD [place] Office Visit 08/26/2011 Honorio Henley, V67.09 Follow Up 1:10p Office Robbie Lambert MD Examination Following Other Surgery 717.40 Derangement Lateral Meniscus Unspec 717.7 Chondromalacia Of Patella 715.16 Osteoarthrosis Localized Prim Lower Leg Office Visit 06/20/2011 11:10a Honorio Henley 717.40 Derangement Office Robbie Lambert MD Lateral Meniscus Unspec 715.16 Osteoarthrosis Localized Prim Lower Leg Office Visit 04/15/2011 2:40p Honorio Henley 717.40 Derangement Office Robbie Lambert MD Lateral Meniscus Unspec Office Visit 03/26/2011 1:30p Honorio Henley 717.3 Derangement Office Robbie Lambert MD Medial Meniscus Other & Unspec 715.16 Osteoarthrosis Localized Prim Lower Leg Plan of Treatment Future Appointment(s):01/06/2019 1:20 pm - lAma Veras, MSN, MANAGEMENT INFORMATION SYSTEMS DIRECTOR at Cardiology Fwchli6911/16/2018 - Luis Bartholomew M.D., FACCR60.0 Localized edemaNew Labs:Comprehensive Metabolic Panel, Ordered: 11/16/18Comments:She will continue with lasix 40 mg in am. She will also have losartan with HCTZ. She will have CMP in about 1 week. She needs an echo to assess LVF and pulmonary pressure.I10 Essential (primary) hypertensionComments:BP goal is <130/80 mmHg. She will add losartan/HCTZ and draw BMP in 1 weekZ82.49 Family history of ischemic heart disease and other diseases of the circulatory systemComments:She will have a lexiscan to rule out ischemia given her GARCIA.AllNew Medication: Losartan Potassium/Hydrochlorothiazide 100-25 mg - 1 by mouth every day
--- NOTE | 2018-12-15 20:37 | UC ---
Eye Complaint HPI - HPI Summary HPI Summary: Pt presents with c/o right eye redness, and tenderness after removing contacts. Pt states she has scratched her cornea previously when taking contact out. - History of Current Complaint Chief Complaint: UCEye Stated Complaint: RT EYE CONCERN Time Seen by Provider: 12/15/18 20:07 Hx Obtained From: Patient Hx Last Menstrual Period: 6 yrs ?: No Onset/Duration: Sudden Onset, Still Present Timing: Hours Severity Initially: Mild Severity Currently: Mild Pain Intensity: 0 Character: Sharp, Dull Aggravating Factor(s): Contact Lens Alleviating Factor(s): Nothing Associated Signs And Symptoms: Positive: Drainage (Clear) - Risk Factors Penetrating Injury Risk Factor: Negative Globe Rupture Risk Factors: Negative Acute Glaucoma Risk Factors: Negative Optic Artery Occlusion Risk Factors: Negative - Allergies/Home Medications Allergies/Adverse Reactions: Allergies Allergy/AdvReac Type Severity Reaction Status Date / Time bee venom protein (honey bee) Allergy Severe Anaphylatic Verified 12/15/18 20:04 Shock latex Allergy Severe SWELLING Verified 12/15/18 20:04 OF FACE,LIPS AND THROAT morphine Allergy Severe Difficulty Verified 12/15/18 20:04 Breathing Sulfa (Sulfonamide Allergy Severe DIFFICULTY Verified 12/15/18 20:04 Antibiotics) BREATHING. RASH Home Medications: Home Medications Thyroid TAB* [Thyroid TAB 15 MG*] 100 mg DAILY 12/15/18 [History Confirmed 12/15] PMH/Surg Hx/FS Hx/Imm Hx Previously Healthy: Yes Other History Of: Negative For: HIV, Hepatitis B, Hepatitis C, Anticoagulant Therapy - Surgical History Surgical History: Yes Surgery Procedure, Year, and Place: [facility] & [facility] [place]. 2000 hysterectomy [place]. 2010 MENISCUS REPAIRED AND ARTHRITIS REMOVED FROM LT KNEE [place]. july 2015. 2011 GALL BLADDER REMOVED [place]. KNEE SURGERY-LEFT 07/16/15 - Family History Known Family History: Positive: Cardiac Disease, Hypertension, Diabetes - Social History Occupation: Employed Full-time Lives: With Family Alcohol Use: None Substance Use Type: None Smoking Status (MU): Never Smoked Tobacco Have You Smoked in the Last Year: No - Immunization History Most Recent Influenza Vaccination: Unknown Most Recent Pneumonia Vaccination: Unknown Review of Systems All Other Systems Reviewed And Are Negative: Yes Constitutional: Positive: Negative Skin: Positive: Negative Eyes: Positive: Drainage - clear, Eye Redness ENT: Positive: Negative Respiratory: Positive: Negative Cardiovascular: Positive: Negative Gastrointestinal: Positive: Negative Genitourinary: Positive: Negative Motor: Positive: Negative Neurovascular: Positive: Negative Musculoskeletal: Positive: Negative Neurological: Positive: Negative Psychological: Positive: Negative Is Patient Immunocompromised?: No Physical Exam Triage Information Reviewed: Yes Appearance: Well-Appearing Vital Signs: Initial Vital Signs Temp 96.9 F 12/15/18 20:12 Pulse 103 12/15/18 20:12 Resp 16 12/15/18 20:12 BP 115/60 12/15/18 20:12 Pulse Ox 97 12/15/18 20:12 Eyes: Positive: Conjunctiva Inflamed, Other: - clear drainage right eye, scleritis right eye ENT Exam: Normal Dental Exam: Normal Neck exam: Normal Respiratory: Positive: No respiratory distress Musculoskeletal Exam: Normal Neurological Exam: Normal Psychological Exam: Normal Skin Exam: Normal Eye Complaint Course/Dx - Differential Dx/Diagnosis Differential Diagnosis/HQI/PQRI: Conjunctivitis, Corneal Abrasion Provider Diagnosis: Redness of right eye, Acute right eye pain Discharge - Sign-Out/Discharge Documenting (check all that apply): Patient Departure All imaging exams completed and their final reports reviewed: No Studies - Discharge Plan Condition: Stable Disposition: HOME Prescriptions: Ofloxacin 0.3% (Eye Drop) [Ocuflox OPTH 0.3% (Eye Drop)] 1 - 2 drop RIGHT EYE Q4H 7 Days #1 btl Patient Education Materials: Conjunctivitis (ED) Referrals: Mila Sifuentes [Primary Care Provider] - If Needed Additional Instructions: Please follow up with your eye care provider as needed. - Billing Disposition and Condition Condition: STABLE Disposition: Home
== END 2018-12-15 20:46 | disposition home or self-care (01) ==
LOC: UCCORT 19:46
DX: H57.89 Other specified disorders of eye and adnexa (principal); H57.11 Ocular pain, right eye; Z88.2 Allergy status to sulfonamides
CPT/HCPCS: 99212; G0463

== ENCOUNTER 2021-04-19 14:22 | Inpatient (IN) ==
[2021-04-19 16:02] LABS: Urine Appearance Cloudy; Urine Bilirubin Negative (Negative); Urine Blood Negative (Negative); Urine Color Yellow; Urine Glucose Negative (Negative); Urine Ketones Negative (Negative); Urine Nitrite Negative (Negative); Urine Protein Negative (Negative); Urine Specific Gravity 1.017 (1.002-1.030); Urine Urobilinogen Negative (Negative)
[2021-04-19 16:07] LABS: Urine Bacteria Absent (Absent); Urine Red Blood Cell Absent (Absent); Urine Squamous Epithelial Cell Present (Absent); Urine White Blood Cell 1+(6-10/hpf) (Absent)
[2021-04-19 16:21] LABS: Urine Benzodiazepine Screen None Detected (None Detect); Urine Cannabinoids Screen Presumptive Positive (None Detect); Urine Opiates Screen None Detected (None Detect)
[2021-04-19 16:23] LABS: ABS Eosinophils 0.1 10^3/ul (0-0.6); ABS Lymphocytes 2.5 10^3/ul (1.0-4.8); ABS Monocytes 0.4 10^3/ul (0-0.8); ABS Neutrophils 4.1 10^3/ul (1.5-7.7); Eosinophil % 1.6 %; Hematocrit 36 % (35-47); Hemoglobin 12.3 g/dL (12.0-16.0); Lymphocyte % 34.7 %; Mean Corpuscular HGB Conc 34 g/dL (31-36); Mean Corpuscular Hemoglobin 30 pg (27-31); Mean Corpuscular Volume 88 fL (80-97); Mean Platelet Volume 7.7 fL (7.4-10.4); Platelet Count 274 10^3/uL (150-450); Red Blood Count 4.13 10^6 /uL (3.70-4.87); Red Cell Distribution Width 15 % (10-15); White Blood Count 7.2 10^3/uL (3.5-10.8)
[2021-04-19 16:42] LABS: ALT 52 U/L (7-52); AST 46 U/L (13-39); Albumin 3.9 g/dL (3.2-5.2); Albumin/Globulin Ratio 1.1 (1-3); Alkaline Phosphatase 149 U/L (35-149); Anion Gap 4 mmol/L (2-11); Blood Urea Nitrogen 14 mg/dL (6-24); CO2 Carbon Dioxide 31 mmol/L (22-32); Calcium 10.1 mg/dL (8.6-10.3); Chloride 101 mmol/L (101-111); Globulin 3.5 g/dL (2-4); Glucose 96 mg/dL (70-100); Potassium 4.2 mmol/L (3.5-5.0); Sodium 136 mmol/L (135-145); Total Protein 7.4 g/dL (6.4-8.9); eGFR CKD-EPI 83.3 (>60)
[2021-04-19 17:06] LABS: Acetaminophen < 15 mcg/mL; Alcohol, S < 13 mg/dL (<13); Salicylate < 2.50 mg/dL (<30)
[2021-04-20] MEDS ORDERED: Al Hydrox/Mg Hydrox/Simet LIQ 30 ML UDC PO PRN (00:13)
[2021-04-20] MEDS ORDERED: Flu vaccine *QUAD* 2021-22* 0.5 ML SYRINGE IM ONE (09:00)
[2021-04-20] MEDS: Vitamin THERAPEUTIC TAB PO SCH (09:56)
[2021-04-21 08:07] LABS: HDL Cholesterol 45.8 mg/dL
[2021-04-21] MEDS: Vitamin THERAPEUTIC TAB PO SCH (08:32)
[2021-04-21 20:49] VITALS: BP 125/45
[2021-04-22] MEDS: Vitamin THERAPEUTIC TAB PO SCH (08:16)
[2021-04-22] MEDS ORDERED: Paliperidone SUSTENNA 234 MG/1.5 ML IM ONE (13:26)
== END 2021-04-22 17:05 | disposition home or self-care (01) | DRG 753 ==
LOC: ED 14:22 → BSU 18:10
PROVIDERS: ADMIT Psychiatry & Neurology Psychiatry; ATTEND Psychiatry & Neurology Psychiatry

== ENCOUNTER 2021-08-21 14:53 | Inpatient (IN) ==
[2021-08-21 16:50] LABS: Urine Appearance Cloudy; Urine Bilirubin Negative (Negative); Urine Blood Negative (Negative); Urine Color Yellow; Urine Glucose Negative (Negative); Urine Ketones Negative (Negative); Urine Nitrite Negative (Negative); Urine Protein Negative (Negative); Urine Specific Gravity 1.017 (1.002-1.030); Urine Urobilinogen Negative (Negative)
[2021-08-21 17:11] LABS: Urine Benzodiazepine Screen None Detected (None Detect); Urine Cannabinoids Screen Presumptive Positive (None Detect); Urine Opiates Screen None Detected (None Detect)
[2021-08-21 17:59] LABS: ABS Basophils 0.1 10^3/ul (0-0.2); ABS Eosinophils 0.1 10^3/ul (0-0.6); ABS Monocytes 0.5 10^3/ul (0-0.8); ABS Neutrophils 5.9 10^3/ul (1.5-7.7); Eosinophil % 0.8 %; Hematocrit 39 % (35-47); Hemoglobin 13.4 g/dL (12.0-16.0); Lymphocyte % 31.2 %; Mean Corpuscular HGB Conc 34 g/dL (31-36); Mean Corpuscular Hemoglobin 30 pg (27-31); Mean Corpuscular Volume 88 fL (80-97); Mean Platelet Volume 7.8 fL (7.4-10.4); Nucleated Red Blood Cells % 0.1; Platelet Count 270 10^3/uL (150-450); Red Blood Count 4.47 10^6 /uL (3.70-4.87); Red Cell Distribution Width 15 % (10-15); White Blood Count 9.6 10^3/uL (3.5-10.8)
[2021-08-21 18:32] LABS: ALT 46 U/L (7-52); AST 40 U/L (13-39); Acetaminophen < 15 mcg/mL; Albumin 4.3 g/dL (3.2-5.2); Albumin/Globulin Ratio 1.3 (1-3); Alcohol, S < 13 mg/dL (<13); Alkaline Phosphatase 162 U/L (35-149); Anion Gap 8 mmol/L (2-11); Blood Urea Nitrogen 13 mg/dL (6-24); CO2 Carbon Dioxide 35 mmol/L (22-32); Chloride 95 mmol/L (101-111); Globulin 3.4 g/dL (2-4); Glucose 82 mg/dL (70-100); Potassium 3.8 mmol/L (3.5-5.0); Salicylate < 2.50 mg/dL (<30); Sodium 138 mmol/L (135-145); Total Protein 7.7 g/dL (6.4-8.9); eGFR CKD-EPI 81.6 (>60)
[2021-08-21 18:46] LABS: TSH Ultra Thyroid Stim Horm 0.47 mcIU/mL (0.34-5.60)
[2021-08-21 19:32] LABS: High Sensitivity Troponin 1 Hr 3 pg/mL (<15)
[2021-08-21] MEDS ORDERED: Al Hydrox/Mg Hydrox/Simet LIQ 30 ML UDC PO PRN (22:00)
[2021-08-22] MEDS: Vitamin THERAPEUTIC TAB PO SCH (09:30)
[2021-08-23] MEDS: Vitamin THERAPEUTIC TAB PO SCH (08:41)
[2021-08-24] MEDS: Vitamin THERAPEUTIC TAB PO SCH (08:33)
[2021-08-25] MEDS: Vitamin THERAPEUTIC TAB PO SCH (08:45)
[2021-08-26] MEDS: Vitamin THERAPEUTIC TAB PO SCH (09:19)
[2021-08-26] MEDS ORDERED: Carbamide Peroxide 6.5% OTIC 15 ML BTL BOTH EARS SCH (21:00)
[2021-08-27] MEDS: Vitamin THERAPEUTIC TAB PO SCH (08:41)
[2021-08-27] MEDS: Carbamide Peroxide 6.5% OTIC 15 ML BTL BOTH EARS SCH ×2 (12:14→20:03)
[2021-08-28] MEDS: Vitamin THERAPEUTIC TAB PO SCH (07:53)
[2021-08-28 08:32] VITALS: BP 149/81
[2021-08-28] MEDS: Carbamide Peroxide 6.5% OTIC 15 ML BTL BOTH EARS SCH (08:50)
== END 2021-08-28 11:35 | disposition home or self-care (01) | DRG 750 ==
LOC: ED 14:53 → BSU 21:12
PROVIDERS: ADMIT Psychiatry & Neurology Psychiatry; ATTEND Psychiatry & Neurology Psychiatry